=== PATIENT | male | born 1960 | race Caucasian/White ===

== ENCOUNTER 2021-03-26 13:04 | Inpatient (IN) | payer BC ==
[~2021-03-26] VITALS: Ht 177.8 cm; Wt 61.0 kg
--- NOTE | 2021-03-26 14:20 | EKG ---
[facility] [address] [place] [address] Test Date: 2021-03-26 Test Time: 14:11:05 Pat Name: KALIN MAHONEY Department: Room: Gender: M Security Business Analyst: : 1960 Requested By: ALONZO COSTA Order Number: [id number] Reading MD: Measurements Intervals Geary Rate: 78 P: 90 ND: 132 QRS: 89 QRSD: 90 T: 67 QT: 424 QTc: 487 Interpretive Statements SINUS RHYTHM PROLONGED QT NO SPECIFIC ECG ABNORMALITIES RI6.01 No previous ECG available for comparison
[2021-03-26 14:44] LABS: BASO % 1 % (0-3); EOS % 0 % (0-3); HEMATOCRIT 38.5 % (39.0-53.0); HEMOGLOBIN 13.3 g/dL (13.0-17.5); LYMPH # 0.9 x10^3/uL (1.0-4.8); LYMPH % 11 % (24-48); MEAN CORPUSCULAR HEMOGLOBIN 33 pg (25-35); MEAN CORPUSCULAR HGB CONC 35 g/dL (31-37); MEAN CORPUSCULAR VOLUME 94 fL (79-100); MONO # 0.3 x10^3/uL (0.0-1.1); MONO % 4 % (0-9); NEUT # 6.4 x10^3/uL (1.8-7.7); NEUT % 84 % (31-73); PLATELET COUNT 157 x10^3/uL (140-400); RED BLOOD COUNT 4.08 x10^6/uL (4.30-5.70); RED CELL DISTRIBUTION WIDTH 13.1 % (11.5-14.5); WHITE BLOOD COUNT 7.7 x10^3/uL (4.0-11.0)
--- NOTE | 2021-03-26 14:47 | RAD ---
XR CHEST 1V 03/26/2021 2:16 PM INDICATION: Weakness, confusion COMPARISON: None available TECHNIQUE: Portable frontal view of the chest is provided. FINDINGS: The cardiomediastinal silhouette is within normal limits. Lungs are clear. Pulmonary emphysema. There are no significant pleural effusions. There is no pulmonary vascular congestion. No pneumothora x. No suspicious osseous abnormality. IMPRESSION: There is no acute cardiopulmonary process. Pulmonary emphysema. Electronically signed by: Salima Duran MD (03/26/2021 2:44 PM) [id number]
--- NOTE | 2021-03-26 14:50 | RAD ---
EXAM: CT head without contrast INDICATION: Confusion COMPARISON: None TECHNIQUE: Axial CT imaging through the head without intravenous contrast. One or more of the following individualized dose reduction techniques were utilized for this examinat ion: 1. Automated exposure control 2. Adjustment of the mA and/or kV according to patient size 3. Use of iterative reconstruction technique. FINDINGS: The ventricles and sulci are moderately enlarged. There is mild periventricular white matter hypoatte nuation. Mcclellan-white matter differentiation is maintained. There is no intracranial hemorrhage, acute infarct, or mass lesion. Basal cisterns are clear. The skull and scalp are intact. Paranasal sinuses and mastoid air cells are clear. Globes and orbits are intact.. IMPRESSION: 1. No acute intracranial abnormality. 2. Moderate atrophy. Electronically signed by: Susan Castaneda MD (03/26/2021 2:48 PM) [id number]
[2021-03-26 14:56] LABS: PROTHROMBIN TIME PATIENT 15.6 SEC (11.7-14.0)
[2021-03-26 15:11] LABS: ALBUMIN 2.6 g/dL (3.4-5.0); ALBUMIN/GLOBULIN RATIO 0.6 (1.0-1.7); CALCIUM 8.4 mg/dL (8.5-10.1); CREATININE 1.7 mg/dL (0.7-1.3); DIRECT BILIRUBIN 0.7 mg/dL (0.0-0.2); GFR 41.2; MAGNESIUM 2.8 mg/dL (1.8-2.4); POTASSIUM 3.7 mmol/L (3.5-5.1); TOTAL BILIRUBIN 2.1 mg/dL (0.2-1.0); TOTAL PROTEIN 6.9 g/dL (6.4-8.2)
[2021-03-26] MEDS ORDERED: MULTIVIT INFUSN,ADULT 4,VIT K 10 ML, THIAMINE INJ 100 MG, FOLIC ACID INJ 1 MG in IV NOR... IV ONE (15:30)
--- NOTE | 2021-03-26 15:51 | PHYS DOC ---
Past Medical History Additional Past Medical Histor: RA,COMPRESSION FRACTURES Past Surgical History: Other Additional Past Surgical Histo: HERNIA Smoking Status: Never Smoker Alcohol Use: Heavy Additional Information: DAILY, DRINKS 10 TO 12 BEERS A DAY, LAST DRINK 2020 OR 2020 General Adult EDM: Chief Complaint: WEAKNESS/GENERALIZED HPI: HPI: Patient is a 61-year-old male presents to the emergency department via EMS chief complaint of "my family is making me come here ". Patient does complain of being a 10 or more beer per day drinker every day since he was 18 years old. Patient reports quitting drinking this past Sunday because he could no longer afford alcohol. Patient reports since quitting drinking last Sunday he has become weak, feeling cold, and having fainting spells. Patient denies hitting his head. Patient denies aches or pains. Patient reports he feels very thirsty. Patient denies increased urination. Patient denies chest pain, shortness of breath, chest congestion or nasal congestion. Patient states he has not seen a primary care physician since he was 18 years old. Patient reports having an appointment to see a primary care physician at [facility] this next Sunday. Patient's brother at bedside reports the patient has had recent confusion, has had recent falls when he would come to see him. Is wo rried that he may be failure to thrive. Patient's brother states he felt he could not wait until his doctor's appointment this coming Sunday and brought him to the emergency department today for evaluation. Patient denies allergies to medications, takes no rfsj-nfj-[id number] medications nor prescription medications. Patient denies cigarette smoking, denies drug use, states he only drinks beer. Review of Systems: Review of Systems: 14 body systems of review of systems have been reviewed. See HPI for pertinent positives and negative responses, otherwise all other systems are negative, nonpertinent or noncontributory. Constitutional: Negative except as outlined in HPI above. Skin: Negative except as outlined in HPI above. Eyes: Negative except as outlined in HPI above. HENT: Negative except as outlined in HPI above. Respiratory: Negative except as outlined in HPI above. Cardiovascular: Negative except as outlined in HPI above. GI: Negative except as outlined in HPI above. : Negative except as outlined in HPI above. Musculoskeletal: Negative except as outlined in HPI above. Integument: Negative except as outlined in HPI above. Neurologic: Negative except as outlined in HPI above. Endocrine: Negative except as outlined in HPI above. Lymphatic: Negative except as outlined in HPI above. Psychiatric: Negative except as outlined in HPI above. Heart Score: C/O Chest Pain: No Risk Factors: Risk Factors: DM, Current or recent (<one month) smoker, HTN, HLP, family history of CAD, obesity. Risk Scores: Score 0 - 3: 2.5% MACE over next 6 weeks - Discharge Home Score 4 - 6: 20.3% MACE over next 6 weeks - Admit for Clinical Observation Score 7 - 10: 72.7% MACE over next 6 weeks - Early Invasive Strategies Current Medications: Current Medications Medications (Trade) Dose Ordered Sig/Holger Start Time Stop Time Status Last Admin Dose Admin Multivitamins 10 ml/Thiamine HCl 100 mg/Folic Acid 1 mg/Sodium Chloride 1,011.2 ml @ 1,000.088 mls/hr 1X ONCE 03/26/21 15:30 03/26/21 16:30 Allergies: Allergies: Allergies Coded Allergies Type Severity Reaction Last Updated Verified No Known Drug Allergies 03/26/21 No Physical Exam: PE: Constitutional: Well developed, no acute distress, nontoxic in appearance. HENT: Normocephalic, atraumatic, bilateral external ears normal, oropharynx dry, no oral exudates, nose normal. Oral mucosa dry. Eyes: PERRLA, EOMI, conjunctiva normal, no discharge. Neck: Normal range of motion, no tenderness, supple, no stridor. Cardiovascular:Heart rate regular rhythm, no murmur. Lungs & Thorax: Bilateral breath sounds clear to auscultation, lung sounds clear to auscultate all lung grajeda. Abdomen: Bowel sounds normal, soft, no tenderness, no masses, no pulsatile masses. Skin: Warm, dry, no erythema, no rash. Cold to touch. Back: No tenderness, no CVA tenderness. Extremities: No tenderness, no cyanosis, no clubbing, ROM intact, no edema. Bruising to lower extremities. Neurologic: Alert and oriented X 3, normal motor function, normal sensory function, no focal deficits noted. Psychologic: Affect normal, judgement normal, mood normal. Current Patient Data: Labs: Laboratory Tests Test 03/26/21 14:30 White Blood Count 7.7 x10^3/uL (4.0-11.0) Red Blood Count 4.08 x10^6/uL (4.30-5.70) L Hemoglobin 13.3 g/dL (13.0-17.5) Hematocrit 38.5 % (39.0-53.0) L Mean Corpuscular Volume 94 fL (79-100) Mean Corpuscular Hemoglobin 33 pg (25-35) Mean Corpuscular Hemoglobin Concent 35 g/dL (31-37) Red Cell Distribution Width 13.1 % (11.5-14.5) Platelet Count 157 x10^3/uL (140-400) Neutrophils (%) (Auto) 84 % (31-73) H Lymphocytes (%) (Auto) 11 % (24-48) L Monocytes (%) (Auto) 4 % (0-9) Eosinophils (%) (Auto) 0 % (0-3) Basophils (%) (Auto) 1 % (0-3) Neutrophils # (Auto) 6.4 x10^3/uL (1.8-7.7) Lymphocytes # (Auto) 0.9 x10^3/uL (1.0-4.8) L Monocytes # (Auto) 0.3 x10^3/uL (0.0-1.1) Eosinophils # (Auto) 0.0 x10^3/uL (0.0-0.7) Basophils # (Auto) 0.0 x10^3/uL (0.0-0.2) Prothrombin Time 15.6 SEC (11.7-14.0) H Prothrombin Time INR 1.2 (0.8-1.1) H Activated Partial Thromboplast Time 33 SEC (24-38) Sodium Level 113 mmol/L (136-145) *L Potassium Level 3.7 mmol/L (3.5-5.1) Chloride Level 78 mmol/L (98-107) L Carbon Dioxide Level 14 mmol/L (21-32) L Anion Gap 21 (6-14) H Blood Urea Nitrogen 45 mg/dL (8-26) H Creatinine 1.7 mg/dL (0.7-1.3) H Estimated GFR (Cockcroft-Gault) 41.2 BUN/Creatinine Ratio 26 (6-20) H Glucose Level 131 mg/dL (70-99) H Calcium Level 8.4 mg/dL (8.5-10.1) L Phosphorus Level 6.0 mg/dL (2.6-4.7) H Magnesium Level 2.8 mg/dL (1.8-2.4) H Total Bilirubin 2.1 mg/dL (0.2-1.0) H Direct Bilirubin 0.7 mg/dL (0.0-0.2) H Aspartate Amino Transferase (AST) 24 U/L (15-37) Alanine Aminotransferase (ALT) 31 U/L (16-63) Alkaline Phosphatase 92 U/L (46-116) Creatine Kinase 140 U/L (39-308) Creatine Kinase MB (Mass) 2.5 ng/mL (0.0-3.6) Creatine Kinase MB Relative Index 1.8 % (0-4) Troponin I Quantitative < 0.017 ng/mL (0.000-0.055) SO-Qih-U-Type Natriuretic Peptide 1955 pg/mL (0-124) H Total Protein 6.9 g/dL (6.4-8.2) Albumin 2.6 g/dL (3.4-5.0) L Albumin/Globulin Ratio 0.6 (1.0-1.7) L Lipase 317 U/L (73-393) Ethyl Alcohol Level < 10 mg/dL (0-10) Laboratory Tests 03/26/21 14:30 Laboratory Tests 03/26/21 14:30 Vital Signs: Laboratory Tests Test 03/26/21 14:30 White Blood Count 7.7 x10^3/uL Red Blood Count 4.08 x10^6/uL Hemoglobin 13.3 g/dL Hematocrit 38.5 % Mean Corpuscular Volume 94 fL Mean Corpuscular Hemoglobin 33 pg Mean Corpuscular Hemoglobin Concent 35 g/dL Red Cell Distribution Width 13.1 % Platelet Count 157 x10^3/uL Neutrophils (%) (Auto) 84 % Lymphocytes (%) (Auto) 11 % Monocytes (%) (Auto) 4 % Eosinophils (%) (Auto) 0 % Basophils (%) (Auto) 1 % Neutrophils # (Auto) 6.4 x10^3/uL Lymphocytes # (Auto) 0.9 x10^3/uL Monocytes # (Auto) 0.3 x10^3/uL Eosinophils # (Auto) 0.0 x10^3/uL Basophils # (Auto) 0.0 x10^3/uL Prothrombin Time 15.6 SEC Prothromb Time International Ratio 1.2 Activated Partial Thromboplast Time 33 SEC Sodium Level 113 mmol/L Potassium Level 3.7 mmol/L Chloride Level 78 mmol/L Carbon Dioxide Level 14 mmol/L Anion Gap 21 Blood Urea Nitrogen 45 mg/dL Creatinine 1.7 mg/dL Estimated GFR (Cockcroft-Gault) 41.2 BUN/Creatinine Ratio 26 Glucose Level 131 mg/dL Calcium Level 8.4 mg/dL Phosphorus Level 6.0 mg/dL Magnesium Level 2.8 mg/dL Total Bilirubin 2.1 mg/dL Direct Bilirubin 0.7 mg/dL Aspartate Amino Transf (AST/SGOT) 24 U/L Alanine Aminotransferase (ALT/SGPT) 31 U/L Alkaline Phosphatase 92 U/L Creatine Kinase 140 U/L Creatine Kinase MB (Mass) 2.5 ng/mL Creatine Kinase MB Relative Index 1.8 % Troponin I Quantitative < 0.017 ng/mL SV-Izx-P-Type Natriuretic Peptide 1955 pg/mL Total Protein 6.9 g/dL Albumin 2.6 g/dL Albumin/Globulin Ratio 0.6 Lipase 317 U/L Ethyl Alcohol Level < 10 mg/dL Current Medications Medications (Trade) Dose Ordered Sig/Holger Route PRN Reason Start Time Stop Time Status Last Admin Dose Admin Multivitamins 10 ml/Thiamine HCl 100 mg/Folic Acid 1 mg/Sodium Chloride 1,011.2 ml @ 1,000.088 mls/hr 1X ONCE IV 03/26/21 15:30 03/26/21 16:30 03/26/21 15:31 Multivitamins 10 ml/Thiamine HCl 100 mg/Folic Acid 1 mg/Sodium Chloride 1,011.2 ml @ 100 mls/ hr DAILY IV 03/27/21 09:00 03/30/21 19:07 Multivitamins (Thera M Plus) 1 tab DAILY PO 03/31/21 09:00 Folic Acid (Folic Acid) 1 mg DAILY PO 03/31/21 09:00 Thiamine Mononitrate (Vitamin B-1) 100 mg DAILY PO 03/31/21 09:00 Lorazepam (Ativan) 4 mg PRN Q1HR PRN PO For CIWA 8-14 03/26/21 16:00 Lorazepam (Ativan) 8 mg PRN Q1HR PRN PO For CIWA 15 or greater 03/26/21 16:00 Albuterol/ Ipratropium (Duoneb) 3 ml QID NEB 03/26/21 17:00 UNV Vital Signs Date Time Temp Pulse Resp B/P (MAP) Pulse Ox O2 Delivery O2 Flow Rate FiO2 03/26/21 13:22 93.3 80 20 141/77 (98) 100 Room Air 93.3 EKG: EKG: EKG performed at 1411 by ED nursing staff shows a normal sinus rhythm with prolonged QT interval, heart rate 70 bpm, ID interval 0.132, QTc interval 0.487, no acute STEMI, no ACS, no acute ischemia appreciated, EKG interpreted by ED attending physician Dr. Duke. Radiology/Procedures: Radiology/Procedures: PATIENT: KALIN MAHONEY ACCOUNT: [id number] : 1960 LOCATION: ER AGE: 61 SEX: M EXAM STATUS: PRE ER ORD. PHYSICIAN: ALONZO COSTA APRN REASON: Weakness, confusion PROCEDURE: CHEST AP ONLY XR CHEST 1V 03/26/2021 2:16 PM INDICATION: Weakness, confusion COMPARISON: None available TECHNIQUE: Portable frontal view of the chest is provided. FINDINGS: The cardiomediastinal silhouette is within normal limits. Lungs are clear. Pulmonary emphysema. There are no significant pleural effusions. There is no pulmonary vascular congestion. No pneumothorax. No suspicious osseous abnormality. IMPRESSION: There is no acute cardiopulmonary process. Pulmonary emphysema. PROCEDURE: CT HEAD WO CONTRAST EXAM: CT head without contrast INDICATION: Confusion COMPARISON: None TECHNIQUE: Axial CT imaging through the head without intravenous contrast. One or more of the following individualized dose reduction techniques were utilized for this examination: 1. Automated exposure control 2. Adjustment of the mA and/or kV according to patient size 3. Use of iterative reconstruction technique. FINDINGS: The ventricles and sulci are moderately enlarged. There is mild periventricular white matter hypoattenuation. Mcclellan-white matter differentiation is maintained. There is no intracranial hemorrhage, acute infarct, or mass lesion. Basal cisterns are clear. The skull and scalp are intact. Paranasal sinuses and mastoid air cells are clear. Globes and orbits are intact.. IMPRESSION: 1. No acute intracranial abnormality. 2. Moderate atrophy. Electronically signed by: Susan Castaneda MD (03/26/2021 2:48 PM) [id number] Course & Med Decision Making: Course & Med Decision Making Pertinent Labs and Imaging studies reviewed. (See chart for details) 61-year-old male, vital signs reviewed, presents emergency department concerning weakness and confusion after stopping drinking alcohol this past Sunday. Patient's physical examination concerning for failure to thrive, will order cardiopulmonary work-up, EtOH withdrawal work-up. Patient does have a reported 43-year every day drinking beer history of 10+ beers. Patient made an abrupt stop this past Sunday. Patient reports not seeing a physician for primary care over the past 43 years. Patient does present with hypothermia, rectal temp 93.3. Bear hugger ordered for hypothermia. Patient's labs concerning for severe hyponatremia, acute kidney injury, discussed with patient and patient's family members at bedside labs, concerns, recommended admission to the intensive care unit for hyponatremia, acute kidney injury, alcoholism, alcohol withdrawal syndrome, hyperthermia. Patient and patient's family members gave verbal understanding of and are amenable to adm ission recommendation. Repeat axillary temp of 95.6, continue Lesia hugger treatment. Critical labs were called by labor expediter at 1515, banana bag ordered Called and discussed patient case and ED work-up with inpatient management physician Dr. Iriwn who agrees patient's ED presentation warrants admission to the intensive care unit, Dr. Irwin states he will examine patient in ED and manage fluid resuscitation related to hyponatremia. Dr. Irwin requested consult to nephrology specialty. Called and discussed patient case and ED work-up with nephrology specialist Dr. Marquis who agrees patient warrants admission to the ICU, states he will call ICU for orders and ongoing patient management. Patient awaiting ICU bed from data warehouse architect at this time. Mavis Disclaimer: Mavis Disclaimer: This electronic medical record was generated, in whole or in part, using a voice recognition dictation system. Departure Departure Impression: Primary Impression: Hyponatremia Additional Impressions: MAHESH (acute kidney injury) Alcoholism Alcohol withdrawal syndrome Qualified Codes: F10.239 - Alcohol dependence with withdrawal, unspecified Hypothermia Qualified Codes: T68.XXXA - Hypothermia, initial encounter Disposition: 09 ADMITTED INPATIENT Admitting Physician: CISCO (Admit to Dr. Irwin to ICU, Dr. Marquis nephrology consulted.) Condition: GUARDED Referrals: NO PCP (PCP) ALONZO COSTA APRN Mar 26, 2021 15:51
[2021-03-26] MEDS ORDERED: ELECTROLYTE (NON-ICU) PROTOCOL. MC PRN (16:15)
[2021-03-26] MEDS ORDERED: ONDANSETRON PF 4 MG/2 ML VIAL. IVP PRN (16:15)
[2021-03-26] MEDS ORDERED: oxyCODONE/APAP 5/325 1 TAB TABLET PO PRN ×2 (16:15)
[2021-03-26] MEDS ORDERED: CALCIUM CARBONATE 500 MG TAB.CHEW PO PRN (16:15)
[2021-03-26] MEDS ORDERED: ZOLPIDEM 5 MG TABLET. PO PRN (16:15)
[2021-03-26] MEDS ORDERED: ACETAMINOPHEN 325 MG TABLET. PO PRN (16:15)
--- NOTE | 2021-03-26 16:40 | PDOC1 ---
History and Physical Date of Service: DOS: DATE: 03/26/21 TIME: 16:34 Chief Complaint: Problems: (1) Hyponatremia (2) MAHESH (acute kidney injury) (3) Hypothermia (4) Alcoholism Chief Complain: I was brought here by my family for weakness History of Present Illness: HPI: Patient very poor historian, not really give a reliable history thus below was from emergency department Patient is a 61-year-old male presents to the emergency department via EMS chief complaint of "my family is making me come here ". Patient does complain of being a 10 or more beer per day drinker every day since he was 18 years old. Patient reports quitting drinking this past Sunday because he could no longer afford alcohol. Patient reports since quitting drinking last Sunday he has become weak, feeling cold, and having fainting spells. Patient denies hitting his head. Patient denies aches or pains. Patient reports he feels very thirsty. Patient denies increased urination. Patient denies chest pain, shortness of breath, chest congestion or nasal congestion. Patient states he has not seen a primary care physician since he was 18 years old. Patient reports having an appointment to see a primary care physician at [facility] this next Sunday. Patient's brother at bedside reports the patient has had recent confusion, has had recent falls when he would come to see him. Is worried that he may be failure to thrive. Patient's brother states he felt he could not wait until his doctor's appointment this coming Sunday and brought him to the emergency department today for evaluation. Patient denies allergies to medications, takes no [id number] medications nor prescription medications. Patient denies cigarette smoking, denies drug use, states he only drinks beer. Past Medical/Surgical History: PMH/PSH: Rheumatoid arthritis Allergies: Allergies: Coded Allergies: No Known Drug Allergies (Unverified , 03/26/21) Family History: Family History: Noncontributory Social History: Social History: Daily alcohol user 10-15 beers a day for several years. No drugs or smoking tobacco Current Medications: Current Medications Current Medications Multivitamins 10 ml/Thiamine HCl 100 mg/Folic Acid 1 mg/Sodium Chloride 1,011.2 ml @ 1,000.088 mls/hr 1X ONCE IV Last administered on 03/26/21at 15:31; Start 9/25/21 at 15:30; Stop 03/26/21 at 16:30; Status DC Multivitamins 10 ml/Thiamine HCl 100 mg/Folic Acid 1 mg/Sodium Chloride 1,011.2 ml @ 100 mls/ hr DAILY IV ; Start 03/27/21 at 09:00; Stop 03/30/21 at 19:07 Multivitamins (Thera M Plus) 1 tab DAILY PO ; Start 03/31/21 at 09:00 Folic Acid (Folic Acid) 1 mg DAILY PO ; Start 03/31/21 at 09:00 Thiamine Mononitrate (Vitamin B-1) 100 mg DAILY PO ; Start 03/31/21 at 09:00 Lorazepam (Ativan) 4 mg PRN Q1HR PRN PO For CIWA 8-14; Start 03/26/21 at 16:00 Lorazepam (Ativan) 8 mg PRN Q1HR PRN PO For CIWA 15 or greater; Start 03/26/21 at 16:00 Albuterol/ Ipratropium (Duoneb) 3 ml QID NEB ; Start 03/26/21 at 17:00 Ondansetron HCl (Zofran) 4 mg PRN Q6HRS PRN IVP NAUSEA/VOMITING; Start 03/26/21 at 16:15 Calcium Carbonate/ Glycine (Tums) 500 mg PRN Q3HRS PRN PO UPSET STOMACH; Start 03/26/21 at 16:15 Zolpidem Tartrate (Ambien) 5 mg PRN QHS PRN PO INSOMNIA, MAY REPEAT IN 1HR; Start 03/26/21 at 16:15 Info (Non-Icu Electrolyte Protocol) 1 ea PRN DAILY PRN MC SEE COMMENTS; Start 03/26/21 at 16:15 Oxycodone/ Acetaminophen (Percocet 5/325) 1 tab PRN Q4HRS PRN PO MILD PAIN, 1ST CHOICE; Start 03/26/21 at 16:15 Oxycodone/ Acetaminophen (Percocet 5/325) 2 tab PRN Q4HRS PRN PO MODERATE PAIN, SEVERE PAIN; Start 03/26/21 at 16:15 Acetaminophen (Tylenol) 650 mg PRN Q6HRS PRN PO Headaches, Temp > 101.5F; Start 03/26/21 at 16:15 Senna/Docusate Sodium (Senna Plus) 1 tab BID PO ; Start 03/26/21 at 21:00 Heparin Sodium (Porcine) (Heparin Sodium) 5,000 unit Q8HRS SQ ; Start 03/26/21 at 22:00 ROS: Review of Systems Review of System Negative unless noted in HPI Physical Exam: Vital Signs: Vital Signs Date Time Temp Pulse Resp B/P (MAP) Pulse Ox O2 Delivery O2 Flow Rate FiO2 03/26/21 16:15 95.7 95.7 03/26/21 15:04 84 116/65 (82) 100 Room Air 03/26/21 13:22 20 Physcial Exam: GEN: Alert and oriented but slow to answer HEENT: Normal cephalic, atraumatic, external auditory canals are patent EYES: Extraocular muscles are intact, pupil are equally round and reactive to light and accommodation MUSCULOSKELETAL: Well developed , well nourished, good range of motion ENDOCRINE: No thyromegaly was palpated LYMPHATICS: No cervical chain or axillary nodes were noted HEMATOPOIETIC: No bruising NECK: Supple, no JVD, no thyromegaly was noted LUNGS: Clear to auscultation in all lung grajeda without rhonchi or wheezing HEART: RRR, S1, S2 present. Peripheral pulses intact, no obvious murmurs noted ABDOMEN: Soft, nontender. Positive bowel sounds, no organomegaly, normal bowel sounds EXTREMITIES: Without clubbing, cyanosis, or edema. Pedal pulses intact. Negative Homans sign NEUROLOGIC: Normal speech and tone. A&O x 3, moves all extremities, no obvious focal deficits PSYCHIATRIC: Normal affect, normal mood. Stable SKIN: No ulcerations or rashes, good skin turgor, no jaundice VASCULAR: Good capillary refill, neurovascular bundle appears to be intact Labs: Labs: Laboratory Tests Test 03/26/21 14:30 White Blood Count 7.7 x10^3/uL (4.0-11.0) Red Blood Count 4.08 x10^6/uL (4.30-5.70) Hemoglobin 13.3 g/dL (13.0-17.5) Hematocrit 38.5 % (39.0-53.0) Mean Corpuscular Volume 94 fL (79-100) Mean Corpuscular Hemoglobin 33 pg (25-35) Mean Corpuscular Hemoglobin Concent 35 g/dL (31-37) Red Cell Distribution Width 13.1 % (11.5-14.5) Platelet Count 157 x10^3/uL (140-400) Neutrophils (%) (Auto) 84 % (31-73) Lymphocytes (%) (Auto) 11 % (24-48) Monocytes (%) (Auto) 4 % (0-9) Eosinophils (%) (Auto) 0 % (0-3) Basophils (%) (Auto) 1 % (0-3) Neutrophils # (Auto) 6.4 x10^3/uL (1.8-7.7) Lymphocytes # (Auto) 0.9 x10^3/uL (1.0-4.8) Monocytes # (Auto) 0.3 x10^3/uL (0.0-1.1) Eosinophils # (Auto) 0.0 x10^3/uL (0.0-0.7) Basophils # (Auto) 0.0 x10^3/uL (0.0-0.2) Prothrombin Time 15.6 SEC (11.7-14.0) Prothromb Time International Ratio 1.2 (0.8-1.1) Activated Partial Thromboplast Time 33 SEC (24-38) Sodium Level 113 mmol/L (136-145) Potassium Level 3.7 mmol/L (3.5-5.1) Chloride Level 78 mmol/L (98-107) Carbon Dioxide Level 14 mmol/L (21-32) Anion Gap 21 (6-14) Blood Urea Nitrogen 45 mg/dL (8-26) Creatinine 1.7 mg/dL (0.7-1.3) Estimated GFR (Cockcroft-Gault) 41.2 BUN/Creatinine Ratio 26 (6-20) Glucose Level 131 mg/dL (70-99) Calcium Level 8.4 mg/dL (8.5-10.1) Phosphorus Level 6.0 mg/dL (2.6-4.7) Magnesium Level 2.8 mg/dL (1.8-2.4) Total Bilirubin 2.1 mg/dL (0.2-1.0) Direct Bilirubin 0.7 mg/dL (0.0-0.2) Aspartate Amino Transf (AST/SGOT) 24 U/L (15-37) Alanine Aminotransferase (ALT/SGPT) 31 U/L (16-63) Alkaline Phosphatase 92 U/L (46-116) Creatine Kinase 140 U/L (39-308) Creatine Kinase MB (Mass) 2.5 ng/mL (0.0-3.6) Creatine Kinase MB Relative Index 1.8 % (0-4) Troponin I Quantitative < 0.017 ng/mL (0.000-0.055) TB-Svj-Q-Type Natriuretic Peptide 1955 pg/mL (0-124) Total Protein 6.9 g/dL (6.4-8.2) Albumin 2.6 g/dL (3.4-5.0) Albumin/Globulin Ratio 0.6 (1.0-1.7) Lipase 317 U/L (73-393) Ethyl Alcohol Level < 10 mg/dL (0-10) Laboratory Tests Test 03/26/21 14:30 White Blood Count 7.7 x10^3/uL (4.0-11.0) Red Blood Count 4.08 x10^6/uL (4.30-5.70) Hemoglobin 13.3 g/dL (13.0-17.5) Hematocrit 38.5 % (39.0-53.0) Mean Corpuscular Volume 94 fL (79-100) Mean Corpuscular Hemoglobin 33 pg (25-35) Mean Corpuscular Hemoglobin Concent 35 g/dL (31-37) Red Cell Distribution Width 13.1 % (11.5-14.5) Platelet Count 157 x10^3/uL (140-400) Neutrophils (%) (Auto) 84 % (31-73) Lymphocytes (%) (Auto) 11 % (24-48) Monocytes (%) (Auto) 4 % (0-9) Eosinophils (%) (Auto) 0 % (0-3) Basophils (%) (Auto) 1 % (0-3) Neutrophils # (Auto) 6.4 x10^3/uL (1.8-7.7) Lymphocytes # (Auto) 0.9 x10^3/uL (1.0-4.8) Monocytes # (Auto) 0.3 x10^3/uL (0.0-1.1) Eosinophils # (Auto) 0.0 x10^3/uL (0.0-0.7) Basophils # (Auto) 0.0 x10^3/uL (0.0-0.2) Prothrombin Time 15.6 SEC (11.7-14.0) Prothromb Time International Ratio 1.2 (0.8-1.1) Activated Partial Thromboplast Time 33 SEC (24-38) Sodium Level 113 mmol/L (136-145) Potassium Level 3.7 mmol/L (3.5-5.1) Chloride Level 78 mmol/L (98-107) Carbon Dioxide Level 14 mmol/L (21-32) Anion Gap 21 (6-14) Blood Urea Nitrogen 45 mg/dL (8-26) Creatinine 1.7 mg/dL (0.7-1.3) Estimated GFR (Cockcroft-Gault) 41.2 BUN/Creatinine Ratio 26 (6-20) Glucose Level 131 mg/dL (70-99) Calcium Level 8.4 mg/dL (8.5-10.1) Phosphorus Level 6.0 mg/dL (2.6-4.7) Magnesium Level 2.8 mg/dL (1.8-2.4) Total Bilirubin 2.1 mg/dL (0.2-1.0) Direct Bilirubin 0.7 mg/dL (0.0-0.2) Aspartate Amino Transf (AST/SGOT) 24 U/L (15-37) Alanine Aminotransferase (ALT/SGPT) 31 U/L (16-63) Alkaline Phosphatase 92 U/L (46-116) Creatine Kinase 140 U/L (39-308) Creatine Kinase MB (Mass) 2.5 ng/mL (0.0-3.6) Creatine Kinase MB Relative Index 1.8 % (0-4) Troponin I Quantitative < 0.017 ng/mL (0.000-0.055) DA-Vrb-L-Type Natriuretic Peptide 1955 pg/mL (0-124) Total Protein 6.9 g/dL (6.4-8.2) Albumin 2.6 g/dL (3.4-5.0) Albumin/Globulin Ratio 0.6 (1.0-1.7) Lipase 317 U/L (73-393) Ethyl Alcohol Level < 10 mg/dL (0-10) Assessment/Plan Assessment/Plan Hyponatremia, MAHESH, hypothermia, alcohol abuse with suspected withdrawal -Admit to ICU for sodium of 113 patient's mentation borderline -Elevated creatinine and many electrolyte abnormalities, nephrology consulted -CIWA protocol ordered for alcohol withdrawal -PAT team consulted -Multivitamin -Serum osmolality ordered for hyponatremia -Trend creatinine -DVT prophylaxis -Renal diet Justifications for Admission Other Justification ANTONIA HECK MD Mar 26, 2021 16:40
[2021-03-26] MEDS: IPRATRPIUM/ALBUTEROL 0.5/2.5MG 3 ML NEBU. NEB SCH ×2 (17:02→20:24)
[2021-03-26 17:30] VITALS: BP 81/51
[2021-03-26 19:00] VITALS: BP 86/38
[2021-03-26 20:00] VITALS: BP 93/41
[2021-03-26] MEDS ORDERED: IV NORMAL SALINE 1000ML BAG 1,000 ML IV SCH (20:15)
[2021-03-26] MEDS: SENNOSIDES/DOCUSATE 8.6/50MG TABLET. PO SCH (20:52)
[2021-03-26 21:00] VITALS: BP 85/45
[2021-03-26 22:00] VITALS: BP 92/51
[2021-03-26] MEDS: HEPARIN for SUB-Q USE 5,000 UNIT/ML VIAL. SQ SCH (22:24)
[2021-03-26 23:00] VITALS: BP 85/51
[2021-03-26] MEDS: SODIUM BICARBONATE VIAL 150 MEQ in IV STERILE WATER 1,000 ML IV SCH (23:08)
[2021-03-27] VITALS (14 sets, daily range): BP systolic 79–110; BP diastolic 42–63
[2021-03-27 00:09] LABS: FREE T4 1.04 ng/dL (0.76-1.46); THYROID STIM HORMONE (TSH) 2.16 uIU/mL (0.358-3.74)
[2021-03-27] MEDS ORDERED: ALBUTEROL SULFATE 2.5 MG/3 ML NEBU. NEB PRN (01:45)
[2021-03-27 05:50] LABS: POTASSIUM 3.3 mmol/L (3.5-5.1)
[2021-03-27] MEDS: HEPARIN for SUB-Q USE 5,000 UNIT/ML VIAL. SQ SCH ×3 (05:54→21:53)
[2021-03-27] MEDS: SODIUM BICARBONATE VIAL 150 MEQ in IV STERILE WATER 1,000 ML IV SCH (07:48)
--- NOTE | 2021-03-27 08:53 | PDOC2 ---
CONSULT Date of Consult Date of Consult DATE: 03/27/21 TIME: 08:40 Reason for Consult Reason for Consult: Hyponatremia: Sodium 113 Referring Physician Referring Physician: Dc Identification/Chief Complaint Chief Complaint Weakness Source Source: Chart review, Patient History of Present Illness Reason for Visit: Patient is a 61-year-old gentleman was a very poor historian is unable to provide me with much in terms of details of what has been going on. Most of his history is reviewed from HPI by Dr. Irwin. He could not tell me why he came to the hospital but does admit that he was weak, fatigued and dizzy. He could not tell me how well he was eating or drinking or if he had lost any weight in the recent past. Per documentation from the ER as well as by the admitting team it appears that patient used to drink 10 or more beers per day every day since he was the age of 18 but quit drinking approximately 5 to 7 days ago. Thereafter he became increasingly weak and had some " fainting spells". He cannot tell me if he was orthostatic while standing up. He cannot tell me how much he has been urinating. Reportedly his brother had noticed increasing confusion and had brought up possibility of failure to thrive. At presentation to the ER he was noted to have a sodium of 130 and a bicarb of 14 anion gap of 21 BUN 45 creatinine of 1.7 phosphorus is 6 and albumin of 2.6. We were called for his low sodium. In my discussion with the ER provider it was noted that his head CT was negative for intracranial bleed or obvious lesions other than " moderate atrophy". Chest x- ray was also reportedly negative for obvious pathology other than possible emphysema in this non-smoker Past Medical History Past Medical History No past medical history other than alcoholism since patient has not seen a primary provider since the age of 18 Family History Family History Noncontributory to current issues Social History No ALCOHOL: heavy Drugs: None Lives: Alone Current Problem List Problem List Problems Medical Problems: (1) MAHESH (acute kidney injury) Status: Acute (2) Alcohol withdrawal syndrome Status: Acute (3) Alcoholism Status: Acute (4) Hypothermia Status: Acute Current Medications Current Medications Current Medications Multivitamins 10 ml/Thiamine HCl 100 mg/Folic Acid 1 mg/Sodium Chloride 1,011.2 ml @ 1,000.088 mls/hr 1X ONCE IV Last administered on 03/26/21at 15:31; Start 03/26/21 at 15:30; Stop 03/26/21 at 16:30; Status DC Multivitamins 10 ml/Thiamine HCl 100 mg/Folic Acid 1 mg/Sodium Chloride 1,011.2 ml @ 100 mls/ hr DAILY IV ; Start 03/27/21 at 09:00; Stop 03/26/21 at 22:37; Status DC Multivitamins (Thera M Plus) 1 tab DAILY PO ; Start 03/27/21 at 09:00 Folic Acid (Folic Acid) 1 mg DAILY PO ; Start 03/27/21 at 09:00 Thiamine Mononitrate (Vitamin B-1) 100 mg DAILY PO ; Start 03/27/21 at 09:00 Lorazepam (Ativan) 4 mg PRN Q1HR PRN PO For CIWA 8-14; Start 03/26/21 at 16:00 Lorazepam (Ativan) 8 mg PRN Q1HR PRN PO For CIWA 15 or greater; Start 03/26/21 at 16:00 Albuterol/ Ipratropium (Duoneb) 3 ml QID NEB ; Start 03/26/21 at 17:00; Stop 03/27/21 at 01:39; Status DC Ondansetron HCl (Zofran) 4 mg PRN Q6HRS PRN IVP NAUSEA/VOMITING; Start 03/26/21 at 16:15 Calcium Carbonate/ Glycine (Tums) 500 mg PRN Q3HRS PRN PO UPSET STOMACH; Start 03/26/21 at 16:15 Zolpidem Tartrate (Ambien) 5 mg PRN QHS PRN PO INSOMNIA, MAY REPEAT IN 1HR; Start 03/26/21 at 16:15 Info (Non-Icu Electrolyte Protocol) 1 ea PRN DAILY PRN MC SEE COMMENTS; Start 03/26/21 at 16:15 Oxycodone/ Acetaminophen (Percocet 5/325) 1 tab PRN Q4HRS PRN PO MILD PAIN, 1ST CHOICE; Start 03/26/21 at 16:15 Oxycodone/ Acetaminophen (Percocet 5/325) 2 tab PRN Q4HRS PRN PO MODERATE PAIN, SEVERE PAIN; Start 03/26/21 at 16:15 Acetaminophen (Tylenol) 650 mg PRN Q6HRS PRN PO Headaches, Temp > 101.5F; Sta rt 03/26/21 at 16:15 Senna/Docusate Sodium (Senna Plus) 1 tab BID PO Last administered on 03/26/21at 20:52; Start 03/26/21 at 21:00 Heparin Sodium (Porcine) (Heparin Sodium) 5,000 unit Q8HRS SQ Last administered on 03/27/21at 05:54; Start 03/26/21 at 22:00 Sodium Chloride 1,000 ml @ 75 mls/hr [id number] IV Last administered on 03/26/21at 20:48; Start 03/26/21 at 20:15; Stop 03/26/21 at 22:37; Status DC Sodium Bicarbonate 150 meq/Sterile Water 1,150 ml @ 125 mls/hr Q9H12M IV Last administered on 03/27/21at 07:48; Start 03/26/21 at 23:00 Albuterol Sulfate (Ventolin Neb Soln) 2.5 mg PRN QID PRN NEB SHORTNESS OF BREATH; Start 03/27/21 at 01:45 Allergies Allergies: Coded Allergies: No Known Drug Allergies (Unverified , 03/26/21) ROS Review of System Unable to reliably obtain from the patient due to patient being a poor historian Physical Exam Physical Exam General Appearance: Awake Alert Oriented x 1 -2 In no Distress Eyes: VIsion Unchanged Conjunctiva Normal EN: No EN Drainage Mucous Memb. drysih Neck: no JVD no JVP Supple no Thyromegaly CVS: S1 S2 no Murmur No Gallop No Rub no Edema Resp: no Rales no Rhonchi no Acc. Muscle use GI: BAS +ve NO Bruit Non Tender Non Distended : no CVA tenderness; no Suprapubic Tenderness SKIN: no Rashes Breast Exam deferred Mu.Sk: Adequate ROM mni Muscle Atrophy Heme: Unable to palpate Obvious LAD no Splenomegaly NEURO: Good Strength and Tone no asterixis, tremors or shakes Psych: ? Depressed no Active hallucination Vital Signs Vital Signs Date Time Temp Pulse Resp B/P (MAP) Pulse Ox O2 Delivery O2 Flow Rate FiO2 03/27/21 08:00 98.4 65 17 102/60 (74) 100 Room Air 98.4 Assessment & Plan Hyponatremia: Patient reportedly was asymptomatic at presentation. Serum osmolality was ordered but is not reported yet. Serum alcohol levels were undetectable. Patient has been given isotonic fluids and sodium has corrected to 120 and so fluids have been changed to hypotonic fluids to maintain rate of correction. Etiology of hyponatremia appears to be poor p.o. intake and intr avascular volume depletion. Patient was noted to be hypotensive also at times Element of acute kidney injury: Presumably associated intravascular volume depletion and hypotension. CK is normal despite falls Hypotension: Suspect due to intravascular volume depletion may be contributing to falls also. Intravascular volume depletion: Gentle volume repletion with isotonic/half NS as needed to maintain rate of correction of sodium Wide anion gap metabolic acidosis at presentation: Suspect due to starvation ketosis. Unable to order serum ketones at this facility, no urine (despite order) available to assess urinary ketones. Acidosis appears to have improved with isotonic bicarb drip Hyperphosphatemia: Reevaluate with daily trend. At risk for refeeding Low potassium: Replace as ordered Labs Labs Laboratory Tests Test 03/26/21 14:30 03/26/21 22:30 03/27/21 04:50 White Blood Count 7.7 x10^3/uL (4.0-11.0) Red Blood Count 4.08 x10^6/uL (4.30-5.70) Hemoglobin 13.3 g/dL (13.0-17.5) Hematocrit 38.5 % (39.0-53.0) Mean Corpuscular Volume 94 fL (79-100) Mean Corpuscular Hemoglobin 33 pg (25-35) Mean Corpuscular Hemoglobin Concent 35 g/dL (31-37) Red Cell Distribution Width 13.1 % (11.5-14.5) Platelet Count 157 x10^3/uL (140-400) Neutrophils (%) (Auto) 84 % (31-73) Lymphocytes (%) (Auto) 11 % (24-48) Monocytes (%) (Auto) 4 % (0-9) Eosinophils (%) (Auto) 0 % (0-3) Basophils (%) (Auto) 1 % (0-3) Neutrophils # (Auto) 6.4 x10^3/uL (1.8-7.7) Lymphocytes # (Auto) 0.9 x10^3/uL (1.0-4.8) Monocytes # (Auto) 0.3 x10^3/uL (0.0-1.1) Eosinophils # (Auto) 0.0 x10^3/uL (0.0-0.7) Basophils # (Auto) 0.0 x10^3/uL (0.0-0.2) Prothrombin Time 15.6 SEC (11.7-14.0) Prothromb Time International Ratio 1.2 (0.8-1.1) Activated Partial Thromboplast Time 33 SEC (24-38) Sodium Level 113 mmol/L (136-145) 115 mmol/L (136-145) 120 mmol/L (136-145) Potassium Level 3.7 mmol/L (3.5-5.1) 3.3 mmol/L (3.5-5.1) Chloride Level 78 mmol/L (98-107) 85 mmol/L (98-107) Carbon Dioxide Level 14 mmol/L (21-32) 24 mmol/L (21-32) Anion Gap 21 (6-14) 11 (6-14) Blood Urea Nitrogen 45 mg/dL (8-26) Creatinine 1.7 mg/dL (0.7-1.3) Estimated GFR (Cockcroft-Gault) 41.2 BUN/Creatinine Ratio 26 (6-20) Glucose Level 131 mg/dL (70-99) Calcium Level 8.4 mg/dL (8.5-10.1) Phosphorus Level 6.0 mg/dL (2.6-4.7) Magnesium Level 2.8 mg/dL (1.8-2.4) Total Bilirubin 2.1 mg/dL (0.2-1.0) Direct Bilirubin 0.7 mg/dL (0.0-0.2) Aspartate Amino Transf (AST/SGOT) 24 U/L (15-37) Alanine Aminotransferase (ALT/SGPT) 31 U/L (16-63) Alkaline Phosphatase 92 U/L (46-116) Creatine Kinase 140 U/L (39-308) Creatine Kinase MB (Mass) 2.5 ng/mL (0.0-3.6) Creatine Kinase MB Relative Index 1.8 % (0-4) Troponin I Quantitative < 0.017 ng/mL (0.000-0.055) WZ-Xki-C-Type Natriuretic Peptide 1955 pg/mL (0-124) Total Protein 6.9 g/dL (6.4-8.2) Albumin 2.6 g/dL (3.4-5.0) Albumin/Globulin Ratio 0.6 (1.0-1.7) Lipase 317 U/L (73-393) Ethyl Alcohol Level < 10 mg/dL (0-10) Uric Acid 10.8 mg/dL (3.5-7.2) Thyroid Stimulating Hormone (TSH) 2.160 uIU/mL (0.358-3.74) Free Thyroxine 1.04 ng/dL (0.76-1.46) Lactic Acid Level 1.3 mmol/L (0.4-2.0) Laboratory Tests Test 03/26/21 14:30 03/26/21 22:30 03/27/21 04:50 White Blood Count 7.7 x10^3/uL (4.0-11.0) Red Blood Count 4.08 x10^6/uL (4.30-5.70) Hemoglobin 13.3 g/dL (13.0-17.5) Hematocrit 38.5 % (39.0-53.0) Mean Corpuscular Volume 94 fL (79-100) Mean Corpuscular Hemoglobin 33 pg (25-35) Mean Corpuscular Hemoglobin Concent 35 g/dL (31-37) Red Cell Distribution Width 13.1 % (11.5-14.5) Platelet Count 157 x10^3/uL (140-400) Neutrophils (%) (Auto) 84 % (31-73) Lymphocytes (%) (Auto) 11 % (24-48) Monocytes (%) (Auto) 4 % (0-9) Eosinophils (%) (Auto) 0 % (0-3) Basophils (%) (Auto) 1 % (0-3) Neutrophils # (Auto) 6.4 x10^3/uL (1.8-7.7) Lymphocytes # (Auto) 0.9 x10^3/uL (1.0-4.8) Monocytes # (Auto) 0.3 x10^3/uL (0.0-1.1) Eosinophils # (Auto) 0.0 x10^3/uL (0.0-0.7) Basophils # (Auto) 0.0 x10^3/uL (0.0-0.2) Prothrombin Time 15.6 SEC (11.7-14.0) Prothromb Time International Ratio 1.2 (0.8-1.1) Activated Partial Thromboplast Time 33 SEC (24-38) Sodium Level 113 mmol/L (136-145) 115 mmol/L (136-145) 120 mmol/L (136-145) Potassium Level 3.7 mmol/L (3.5-5.1) 3.3 mmol/L (3.5-5.1) Chloride Level 78 mmol/L (98-107) 85 mmol/L (98-107) Carbon Dioxide Level 14 mmol/L (21-32) 24 mmol/L (21-32) Anion Gap 21 (6-14) 11 (6-14) Blood Urea Nitrogen 45 mg/dL (8-26) Creatinine 1.7 mg/dL (0.7-1.3) Estimated GFR (Cockcroft-Gault) 41.2 BUN/Creatinine Ratio 26 (6-20) Glucose Level 131 mg/dL (70-99) Calcium Level 8.4 mg/dL (8.5-10.1) Phosphorus Level 6.0 mg/dL (2.6-4.7) Magnesium Level 2.8 mg/dL (1.8-2.4) Total Bilirubin 2.1 mg/dL (0.2-1.0) Direct Bilirubin 0.7 mg/dL (0.0-0.2) Aspartate Amino Transf (AST/SGOT) 24 U/L (15-37) Alanine Aminotransferase (ALT/SGPT) 31 U/L (16-63) Alkaline Phosphatase 92 U/L (46-116) Creatine Kinase 140 U/L (39-308) Creatine Kinase MB (Mass) 2.5 ng/mL (0.0-3.6) Creatine Kinase MB Relative Index 1.8 % (0-4) Troponin I Quantitative < 0.017 ng/mL (0.000-0.055) XG-Ssy-E-Type Natriuretic Peptide 1955 pg/mL (0-124) Total Protein 6.9 g/dL (6.4-8.2) Albumin 2.6 g/dL (3.4-5.0) Albumin/Globulin Ratio 0.6 (1.0-1.7) Lipase 317 U/L (73-393) Ethyl Alcohol Level < 10 mg/dL (0-10) Uric Acid 10.8 mg/dL (3.5-7.2) Thyroid Stimulating Hormone (TSH) 2.160 uIU/mL (0.358-3.74) Free Thyroxine 1.04 ng/dL (0.76-1.46) Lactic Acid Level 1.3 mmol/L (0.4-2.0) Review All relevant outside records, renal labs, imaging studies, telemetry/EKG's were reviewed. Images Images Chest x-ray FINDINGS: The cardiomediastinal silhouette is within normal limits. Lungs are clear. Pulmonary emphysema. There are no significant pleural effusions. There is no pulmonary vascular congestion. No pneumothorax. No suspicious osseous abnormality. IMPRESSION: There is no acute cardiopulmonary process. Pulmonary emphysema. Head CT FINDINGS: The ventricles and sulci are moderately enlarged. There is mild periventricular white matter hypoattenuation. Mcclellan-white matter differentiation is maintained. There is no intracranial hemorrhage, acute infarct, or mass lesion. Basal cisterns are clear. The skull and scalp are intact. Paranasal sinuses and mastoid air cells are clear. Globes and orbits are intact.. IMPRESSION: 1. No acute intracranial abnormality. 2. Moderate atrophy. CYNDI PEREZ MD Mar 27, 2021 08:53
[2021-03-27] MEDS ORDERED: MAGNESIUM SULFATE 2GM 50 ML IV PRN (09:00)
[2021-03-27] MEDS ORDERED: MULTIVIT INFUSN,ADULT 4,VIT K 10 ML, THIAMINE INJ 100 MG, FOLIC ACID INJ 1 MG in IV NOR... IV SCH (09:00)
[2021-03-27] MEDS: THIAMINE 100 MG TABLET. PO SCH (09:12)
[2021-03-27] MEDS: SENNOSIDES/DOCUSATE 8.6/50MG TABLET. PO SCH ×2 (09:12→20:17)
[2021-03-27] MEDS: FOLIC ACID 1 MG TABLET. PO SCH (09:12)
[2021-03-27] MEDS: MULTIVITAMIN with MINERAL TABLET. PO SCH (09:12)
[2021-03-27] MEDS: POTASSIUM CHLORIDE 20 MEQ TABLET.ER. PO SCH ×2 (09:20→13:14)
[2021-03-27] MEDS: IV 1/2 NORMAL SALINE 1,000 ML IV SCH ×2 (09:31→21:57)
--- NOTE | 2021-03-27 10:50 | PDOC ---
[employer] PROGRESS NOTE Date of Service DOS: DATE: 03/27/21 TIME: 10:48 Chief Complaint Chief Complaint Weakness History of Present Illness History of Present Illness HPI: Patient very poor historian, not really give a reliable history thus below was from emergency department Patient is a 61-year-old male presents to the emergency department via EMS chief complaint of "my family is making me come here ". Patient does complain of being a 10 or more beer per day drinker every day since he was 18 years old. Patient reports quitting drinking this past Sunday because he could no longer afford alcohol. Patient reports since quitting drinking last Sunday he has become weak, feeling cold, and having fainting spells. Patient denies hitting his head. Patient denies aches or pains. Patient reports he feels very thirsty. Patient denies increased urination. Patient denies chest pain, shortness of breath, chest congestion or nasal congestion. Patient states he has not seen a primary care physician since he was 18 years old. Patient reports having an appointment to see a primary care physician at [facility] this next Sunday. Patient's brother at bedside reports the patient has had recent confusion, has had recent falls when he would come to see him. Is worried that he may be failure to thrive. Patient's brother states he felt he could not wait until his doctor's appointment this coming Sunday and brought him to the emergency department today for evaluation. Patient denies allergies to medications, takes no [id number] medications nor prescription medications. Patient denies cigarette smoking, denies drug use, states he only drinks beer. 03/27 Evaluated patient at bedside today he was eating breakfast had no complaints. Does still seem a bit altered from my point of view. Was asking me about discharge informed him definitely not today. Nephro following. Okay to transfer out of ICU. Vitals/I&O Vitals/I&O: Vital Signs Date Time Temp Pulse Resp B/P (MAP) Pulse Ox O2 Delivery O2 Flow Rate FiO2 03/27/21 10:00 74 23 95/51 (66) 100 Room Air 03/27/21 08:00 98.4 98.4 I & O 03/26/21 03/26/21 03/27/21 15:00 23:00 07:00 Intake Total 1011.2 ml 915 ml Output Total 0 ml 15 ml Balance 1011.2 ml 900 ml Physical Exam General: Alert, Cooperative, No acute distress Heart: Regular rate, Normal S1, Normal S2 Lungs: Clear Abdomen: Normal bowel sounds, Soft, No tenderness Extremities: No edema, Normal pulses Skin: No significant lesion Labs Labs: Laboratory Tests Test 03/26/21 14:30 03/26/21 22:30 03/27/21 04:50 White Blood Count 7.7 x10^3/uL (4.0-11.0) Red Blood Count 4.08 x10^6/uL (4.30-5.70) Hemoglobin 13.3 g/dL (13.0-17.5) Hematocrit 38.5 % (39.0-53.0) Mean Corpuscular Volume 94 fL (79-100) Mean Corpuscular Hemoglobin 33 pg (25-35) Mean Corpuscular Hemoglobin Concent 35 g/dL (31-37) Red Cell Distribution Width 13.1 % (11.5-14.5) Platelet Count 157 x10^3/uL (140-400) Neutrophils (%) (Auto) 84 % (31-73) Lymphocytes (%) (Auto) 11 % (24-48) Monocytes (%) (Auto) 4 % (0-9) Eosinophils (%) (Auto) 0 % (0-3) Basophils (%) (Auto) 1 % (0-3) Neutrophils # (Auto) 6.4 x10^3/uL (1.8-7.7) Lymphocytes # (Auto) 0.9 x10^3/uL (1.0-4.8) Monocytes # (Auto) 0.3 x10^3/uL (0.0-1.1) Eosinophils # (Auto) 0.0 x10^3/uL (0.0-0.7) Basophils # (Auto) 0.0 x10^3/uL (0.0-0.2) Prothrombin Time 15.6 SEC (11.7-14.0) Prothromb Time International Ratio 1.2 (0.8-1.1) Activated Partial Thromboplast Time 33 SEC (24-38) Sodium Level 113 mmol/L (136-145) 115 mmol/L (136-145) 120 mmol/L (136-145) Potassium Level 3.7 mmol/L (3.5-5.1) 3.3 mmol/L (3.5-5.1) Chloride Level 78 mmol/L (98-107) 85 mmol/L (98-107) Carbon Dioxide Level 14 mmol/L (21-32) 24 mmol/L (21-32) Anion Gap 21 (6-14) 11 (6-14) Blood Urea Nitrogen 45 mg/dL (8-26) Creatinine 1.7 mg/dL (0.7-1.3) Estimated GFR (Cockcroft-Gault) 41.2 BUN/Creatinine Ratio 26 (6-20) Glucose Level 131 mg/dL (70-99) Calcium Level 8.4 mg/dL (8.5-10.1) Phosphorus Level 6.0 mg/dL (2.6-4.7) Magnesium Level 2.8 mg/dL (1.8-2.4) Total Bilirubin 2.1 mg/dL (0.2-1.0) Direct Bilirubin 0.7 mg/dL (0.0-0.2) Aspartate Amino Transf (AST/SGOT) 24 U/L (15-37) Alanine Aminotransferase (ALT/SGPT) 31 U/L (16-63) Alkaline Phosphatase 92 U/L (46-116) Creatine Kinase 140 U/L (39-308) Creatine Kinase MB (Mass) 2.5 ng/mL (0.0-3.6) Creatine Kinase MB Relative Index 1.8 % (0-4) Troponin I Quantitative < 0.017 ng/mL (0.000-0.055) MO-Yis-K-Type Natriuretic Peptide 1955 pg/mL (0-124) Total Protein 6.9 g/dL (6.4-8.2) Albumin 2.6 g/dL (3.4-5.0) Albumin/Globulin Ratio 0.6 (1.0-1.7) Lipase 317 U/L (73-393) Ethyl Alcohol Level < 10 mg/dL (0-10) Uric Acid 10.8 mg/dL (3.5-7.2) Thyroid Stimulating Hormone (TSH) 2.160 uIU/mL (0.358-3.74) Free Thyroxine 1.04 ng/dL (0.76-1.46) Lactic Acid Level 1.3 mmol/L (0.4-2.0) Assessment and Plan Assessmemt and Plan Problems Medical Problems: (1) MAHESH (acute kidney injury) Status: Acute (2) Alcohol withdrawal syndrome Status: Acute (3) Alcoholism Status: Acute (4) Hypothermia Status: Acute Assessment/Plan Hyponatremia, MAHESH, hypothermia, alcohol abuse with suspected withdrawal -Admit to ICU for sodium of 113 patient's mentation borderline, improving -Elevated creatinine and many electrolyte abnormalities, nephrology consulted -CIWA protocol ordered for alcohol withdrawal -PAT team consulted -Multivitamin -Serum osmolality ordered for hyponatremia -Trend creatinine -DVT prophylaxis -Renal diet Comment Review of Relevant I have reviewed the following items natalie (where applicable) has been applied. Medications: Current Medications Medications (Trade) Dose Ordered Sig/Holger Route PRN Reason Start Time Stop Time Status Last Admin Dose Admin Multivitamins 10 ml/Thiamine HCl 100 mg/Folic Acid 1 mg/Sodium Chloride 1,011.2 ml @ 1,000.088 mls/hr 1X ONCE IV 03/26/21 15:30 03/26/21 16:30 DC 03/26/21 15:31 Multivitamins (Thera M Plus) 1 tab DAILY PO 03/27/21 09:00 03/27/21 09:12 Folic Acid (Folic Acid) 1 mg DAILY PO 03/27/21 09:00 03/27/21 09:12 Thiamine Mononitrate (Vitamin B-1) 100 mg DAILY PO 03/27/21 09:00 03/27/21 09:12 Senna/Docusate Sodium (Senna Plus) 1 tab BID PO 03/26/21 21:00 03/27/21 09:12 Heparin Sodium (Porcine) (Heparin Sodium) 5,000 unit Q8HRS SQ 03/26/21 22:00 03/27/21 05:54 Sodium Chloride 1,000 ml @ 75 mls/hr [id number] IV 03/26/21 20:15 03/26/21 22:37 DC 03/26/21 20:48 Sodium Bicarbonate 150 meq/Sterile Water 1,150 ml @ 125 mls/hr [id number] IV 03/26/21 23:00 03/27/21 08:56 DC 03/27/21 07:48 Sodium Chloride 1,000 ml @ 75 mls/hr [id number] IV 03/27/21 08:45 03/27/21 09:31 Potassium Chloride (Klor-Con) 40 meq [id number] PO 03/27/21 09:30 03/27/21 12:01 03/27/21 09:20 Justifications for Admission Other Justification ANTONIA HECK MD Mar 27, 2021 10:49
[2021-03-27 11:33] LABS: BILIRUBIN,URINE NEGATIVE (NEG); CLARITY,URINE CLEAR; COLOR,URINE YELLOW; NITRITE,URINE NEGATIVE (NEG); PH,URINE 5.5 (<5.0-8.0); PROTEIN,URINE NEGATIVE (NEG-TRACE)
[2021-03-27 11:38] LABS: BARBITURATES NEG (NEG); BENZODIAZEPINES NEG (NEG); CANNABINOIDS NEG (NEG); COCAINE NEG (NEG); METHADONE NEG (NEG); OPIATES NEG (NEG); PHENCYCLIDINE NEG (NEG)
[2021-03-27 11:40] LABS: AMPHETAMINE/METHAMPHETAMINE NEG (NEG)
[2021-03-27 11:52] LABS: BACTERIA,URINE 0 /HPF (0-FEW); RBC,URINE 0 /HPF (0-2); WBC,URINE 0 /HPF (0-4)
[2021-03-28] VITALS (7 sets, daily range): BP systolic 90–122; BP diastolic 55–67
[2021-03-28 03:58] LABS: ALBUMIN 2.1 g/dL (3.4-5.0); ALBUMIN/GLOBULIN RATIO 0.6 (1.0-1.7); CREATININE 0.7 mg/dL (0.7-1.3); GFR 114.6; PHOSPHORUS 2.8 mg/dL (2.6-4.7); POTASSIUM 4.7 mmol/L (3.5-5.1); TOTAL BILIRUBIN 1.6 mg/dL (0.2-1.0); TOTAL PROTEIN 5.7 g/dL (6.4-8.2)
[2021-03-28] MEDS ORDERED: SODIUM CHLORIDE 23.4% 38.5 MEQ in IV STERILE WATER 1,000 ML IV SCH (05:00)
[2021-03-28] MEDS: HEPARIN for SUB-Q USE 5,000 UNIT/ML VIAL. SQ SCH ×3 (06:08→21:37)
--- NOTE | 2021-03-28 08:44 | PDOC ---
PROGRESS NOTES Date of Service: DATE: 03/28/21 TIME: 08:44 Chief Complaint Chief Complaint Weakness History of Present Illness History of Present Illness HPI: Patient very poor historian, not really give a reliable history thus below was from emergency department Patient is a 61-year-old male presents to the emergency department via EMS chief complaint of "my family is making me come here ". Patient does complain of being a 10 or more beer per day drinker every day since he was 18 years old. Patient reports quitting drinking this past Sunday because he could no longer afford alcohol. Patient reports since quitting drinking last Sunday he has become weak, feeling cold, and having fainting spells. Patient denies hitting his head. Patient denies aches or pains. Patient reports he feels very thirsty. Patient denies increased urination. Patient denies chest pain, shortness of breath, chest congestion or nasal congestion. Patient states he has not seen a primary care physician since he was 18 years old. Patient reports having an appointment to see a primary care physician at [facility] this next Sunday. Patient's brother at bedside reports the patient has had recent confusion, has had recent falls when he would come to see him. Is worried that he may be failure to thrive. Patient's brother states he felt he could not wait until his doctor's appointment this coming Sunday and brought him to the emergency department today for evaluation. Patient denies allergies to medications, takes no [id number] medications nor prescription medications. Patient denies cigarette smoking, denies drug use, states he only drinks beer. 03/27 Evaluated patient at bedside today he was eating breakfast had no complaints. Does still seem a bit altered from my point of view. Was asking me about discharge informed him definitely not today. Nephro following. Okay to transfer out of ICU. 03/28 Evaluated patient at bedside today no complaints. altered but cooperative Nephro following. . na 131 admit 113 Moderate cerebral atrophy. alb 2.1 c/w severe protein-caloric malnutrition 33 min cc time Vitals Vitals Vital Signs Date Time Temp Pulse Resp B/P (MAP) Pulse Ox O2 Delivery O2 Flow Rate FiO2 03/28/21 08:00 Room Air 03/28/21 08:00 97.5 56 12 107/58 (74) 95 97.5 Physical Exam General: Alert, Cooperative, No acute distress Heart: Regular rate, Normal S1, Normal S2 Lungs: Clear Abdomen: Normal bowel sounds, Soft, No tenderness Extremities: No edema, Normal pulses Skin: No significant lesion Labs LABS PATIENT: KALIN MAHONEY ACCOUNT: [id number] : 1960 LOCATION: ER AGE: 61 SEX: M EXAM STATUS: PRE ER ORD. PHYSICIAN: ALONZO COSTA APRN REASON: Confusion PROCEDURE: CT HEAD WO CONTRAST EXAM: CT head without contrast INDICATION: Confusion COMPARISON: None TECHNIQUE: Axial CT imaging through the head without intravenous contrast. One or more of the following individualized dose reduction techniques were utilized for this examination: 1. Automated exposure control 2. Adjustment of the mA and/or kV according to patient size 3. Use of iterative reconstruction technique. FINDINGS: The ventricles and sulci are moderately enlarged. There is mild periventricular white matter hypoattenuation. Mcclellan-white matter differentiation is maintained. There is no intracranial hemorrhage, acute infarct, or mass lesion. Basal cisterns are clear. The skull and scalp are intact. Paranasal sinuses and mastoid air cells are clear. Globes and orbits are intact.. IMPRESSION: 1. No acute intracranial abnormality. 2. Moderate atrophy. Electronically signed by: Susan Castaneda MD (03/26/2021 2:48 PM) [id number] DICTATED and SIGNED BY: SUSAN CASTANEDA MD DATE: 03/26/21 [id number] RUN TIME: 1441 Specimen Inquiry PATIENT: KALIN MAHONEY ACCT: [id number] LOC: 1 [facility] ICU U: [id number] AGE/SX: 61/M ROOM: 109 RE03/26/[address]: ANTONIA HECK MD : 1960 BED: 1 DIS: STATUS: ADM IN TLOC: SPEC #: [id number] GAY: 03/26/21 STATUS: RES REQ #: [id number] RECD: 03/26/21 [facility] DR: ALONZO COSTA APRN SOURCE: BLOOD ENTR: 03/26/[address]: SPDES: ORDERED: BCULT Procedure Result BLOOD CULTURE Preliminary NO GROWTH AFTER 1 DAY Laboratory Tests Test 03/28/21 03:05 Hemoglobin 10.7 g/dL (13.0-17.5) Sodium Level 131 mmol/L (136-145) Potassium Level 4.7 mmol/L (3.5-5.1) Chloride Level 96 mmol/L (98-107) Carbon Dioxide Level 27 mmol/L (21-32) Anion Gap 8 (6-14) Blood Urea Nitrogen 13 mg/dL (8-26) Creatinine 0.7 mg/dL (0.7-1.3) Estimated GFR (Cockcroft-Gault) 114.6 BUN/Creatinine Ratio 19 (6-20) Glucose Level 73 mg/dL (70-99) Calcium Level 8.0 mg/dL (8.5-10.1) Phosphorus Level 2.8 mg/dL (2.6-4.7) Magnesium Level 2.8 mg/dL (1.8-2.4) Total Bilirubin 1.6 mg/dL (0.2-1.0) Aspartate Amino Transf (AST/SGOT) 25 U/L (15-37) Alanine Aminotransferase (ALT/SGPT) 24 U/L (16-63) Alkaline Phosphatase 73 U/L (46-116) Total Protein 5.7 g/dL (6.4-8.2) Albumin 2.1 g/dL (3.4-5.0) Albumin/Globulin Ratio 0.6 (1.0-1.7) Assessment and Plan Assessmemt and Plan Problems Medical Problems: (1) MAHESH (acute kidney injury) Status: Acute (2) Alcohol withdrawal syndrome Status: Acute (3) Alcoholism Status: Acute (4) Hypothermia Status: Acute Comment Review of Relevant I have reviewed the following items natalie (where applicable) has been applied. Labs Laboratory Tests Test 03/26/21 11:14 03/26/21 14:30 03/26/21 22:30 03/27/21 04:50 Urine Collection Type Unknown Urine Color Yellow Urine Clarity Clear Urine pH 5.5 (<5.0-8.0) Urine Specific Coggon <=1.005 (1.000-1.030) Urine Protein Negative mg/dL (NEG-TRACE) Urine Glucose (UA) Negative mg/dL (NEG) Urine Ketones (Stick) 15 mg/dL (NEG) Urine Blood Negative (NEG) Urine Nitrite Negative (NEG) Urine Bilirubin Negative (NEG) Urine Urobilinogen Dipstick 1.0 mg/dL (0.2 mg/dL) Urine Leukocyte Esterase Negative (NEG) Urine RBC 0 /HPF (0-2) Urine WBC 0 /HPF (0-4) Urine Squamous Epithelial Cells Few /LPF Urine Bacteria 0 /HPF (0-FEW) Urine Mucus Slight /LPF Urine Opiates Screen Neg (NEG) Urine Methadone Screen Neg (NEG) Urine Barbiturates Neg (NEG) Urine Phencyclidine Screen Neg (NEG) Urine Amphetamine/Methamphetamine Neg (NEG) Urine Benzodiazepines Screen Neg (NEG) Urine Cocaine Screen Neg (NEG) Urine Cannabinoids Screen Neg (NEG) Urine Ethyl Alcohol Neg (NEG) White Blood Count 7.7 x10^3/uL (4.0-11.0) Red Blood Count 4.08 x10^6/uL (4.30-5.70) Hemoglobin 13.3 g/dL (13.0-17.5) Hematocrit 38.5 % (39.0-53.0) Mean Corpuscular Volume 94 fL (79-100) Mean Corpuscular Hemoglobin 33 pg (25-35) Mean Corpuscular Hemoglobin Concent 35 g/dL (31-37) Red Cell Distribution Width 13.1 % (11.5-14.5) Platelet Count 157 x10^3/uL (140-400) Neutrophils (%) (Auto) 84 % (31-73) Lymphocytes (%) (Auto) 11 % (24-48) Monocytes (%) (Auto) 4 % (0-9) Eosinophils (%) (Auto) 0 % (0-3) Basophils (%) (Auto) 1 % (0-3) Neutrophils # (Auto) 6.4 x10^3/uL (1.8-7.7) Lymphocytes # (Auto) 0.9 x10^3/uL (1.0-4.8) Monocytes # (Auto) 0.3 x10^3/uL (0.0-1.1) Eosinophils # (Auto) 0.0 x10^3/uL (0.0-0.7) Basophils # (Auto) 0.0 x10^3/uL (0.0-0.2) Prothrombin Time 15.6 SEC (11.7-14.0) Prothromb Time International Ratio 1.2 (0.8-1.1) Activated Partial Thromboplast Time 33 SEC (24-38) Sodium Level 113 mmol/L (136-145) 115 mmol/L (136-145) 120 mmol/L (136-145) Potassium Level 3.7 mmol/L (3.5-5.1) 3.3 mmol/L (3.5-5.1) Chloride Level 78 mmol/L (98-107) 85 mmol/L (98-107) Carbon Dioxide Level 14 mmol/L (21-32) 24 mmol/L (21-32) Anion Gap 21 (6-14) 11 (6-14) Blood Urea Nitrogen 45 mg/dL (8-26) Creatinine 1.7 mg/dL (0.7-1.3) Estimated GFR (Cockcroft-Gault) 41.2 BUN/Creatinine Ratio 26 (6-20) Glucose Level 131 mg/dL (70-99) Calcium Level 8.4 mg/dL (8.5-10.1) Phosphorus Level 6.0 mg/dL (2.6-4.7) Magnesium Level 2.8 mg/dL (1.8-2.4) Total Bilirubin 2.1 mg/dL (0.2-1.0) Direct Bilirubin 0.7 mg/dL (0.0-0.2) Aspartate Amino Transf (AST/SGOT) 24 U/L (15-37) Alanine Aminotransferase (ALT/SGPT) 31 U/L (16-63) Alkaline Phosphatase 92 U/L (46-116) Creatine Kinase 140 U/L (39-308) Creatine Kinase MB (Mass) 2.5 ng/mL (0.0-3.6) Creatine Kinase MB Relative Index 1.8 % (0-4) Troponin I Quantitative < 0.017 ng/mL (0.000-0.055) NF-Vts-P-Type Natriuretic Peptide 1955 pg/mL (0-124) Total Protein 6.9 g/dL (6.4-8.2) Albumin 2.6 g/dL (3.4-5.0) Albumin/Globulin Ratio 0.6 (1.0-1.7) Lipase 317 U/L (73-393) Ethyl Alcohol Level < 10 mg/dL (0-10) Uric Acid 10.8 mg/dL (3.5-7.2) Thyroid Stimulating Hormone (TSH) 2.160 uIU/mL (0.358-3.74) Free Thyroxine 1.04 ng/dL (0.76-1.46) Lactic Acid Level 1.3 mmol/L (0.4-2.0) Test 03/28/21 03:05 Hemoglobin 10.7 g/dL (13.0-17.5) Sodium Level 131 mmol/L (136-145) Potassium Level 4.7 mmol/L (3.5-5.1) Chloride Level 96 mmol/L (98-107) Carbon Dioxide Level 27 mmol/L (21-32) Anion Gap 8 (6-14) Blood Urea Nitrogen 13 mg/dL (8-26) Creatinine 0.7 mg/dL (0.7-1.3) Estimated GFR (Cockcroft-Gault) 114.6 BUN/Creatinine Ratio 19 (6-20) Glucose Level 73 mg/dL (70-99) Calcium Level 8.0 mg/dL (8.5-10.1) Phosphorus Level 2.8 mg/dL (2.6-4.7) Magnesium Level 2.8 mg/dL (1.8-2.4) Total Bilirubin 1.6 mg/dL (0.2-1.0) Aspartate Amino Transf (AST/SGOT) 25 U/L (15-37) Alanine Aminotransferase (ALT/SGPT) 24 U/L (16-63) Alkaline Phosphatase 73 U/L (46-116) Total Protein 5.7 g/dL (6.4-8.2) Albumin 2.1 g/dL (3.4-5.0) Albumin/Globulin Ratio 0.6 (1.0-1.7) Laboratory Tests Test 03/28/21 03:05 Hemoglobin 10.7 g/dL (13.0-17.5) Sodium Level 131 mmol/L (136-145) Potassium Level 4.7 mmol/L (3.5-5.1) Chloride Level 96 mmol/L (98-107) Carbon Dioxide Level 27 mmol/L (21-32) Anion Gap 8 (6-14) Blood Urea Nitrogen 13 mg/dL (8-26) Creatinine 0.7 mg/dL (0.7-1.3) Estimated GFR (Cockcroft-Gault) 114.6 BUN/Creatinine Ratio 19 (6-20) Glucose Level 73 mg/dL (70-99) Calcium Level 8.0 mg/dL (8.5-10.1) Phosphorus Level 2.8 mg/dL (2.6-4.7) Magnesium Level 2.8 mg/dL (1.8-2.4) Total Bilirubin 1.6 mg/dL (0.2-1.0) Aspartate Amino Transf (AST/SGOT) 25 U/L (15-37) Alanine Aminotransferase (ALT/SGPT) 24 U/L (16-63) Alkaline Phosphatase 73 U/L (46-116) Total Protein 5.7 g/dL (6.4-8.2) Albumin 2.1 g/dL (3.4-5.0) Albumin/Globulin Ratio 0.6 (1.0-1.7) Microbiology 03/26/21 Blood Culture - Preliminary, Resulted NO GROWTH AFTER 1 DAY Medications Current Medications Multivitamins 10 ml/Thiamine HCl 100 mg/Folic Acid 1 mg/Sodium Chloride 1,011.2 ml @ 1,000.088 mls/hr 1X ONCE IV Last administered on 03/26/21at 15:31; Start 03/26/21 at 15:30; Stop 03/26/21 at 16:30; Status DC Multivitamins 10 ml/Thiamine HCl 100 mg/Folic Acid 1 mg/Sodium Chloride 1,011.2 ml @ 100 mls/ hr DAILY IV ; Start 03/27/21 at 09:00; Stop 03/26/21 at 22:37; Status DC Multivitamins (Thera M Plus) 1 tab DAILY PO Last administered on 03/27/21at 09:12; Start 03/27/21 at 09:00 Folic Acid (Folic Acid) 1 mg DAILY PO Last administered on 03/27/21at 09:12; Start 03/27/21 at 09:00 Thiamine Mononitrate (Vitamin B-1) 100 mg DAILY PO Last administered on 03/27/21at 09:12; Start 03/27/21 at 09:00 Lorazepam (Ativan) 4 mg PRN Q1HR PRN PO For CIWA 8-14; Start 03/26/21 at 16:00 Lorazepam (Ativan) 8 mg PRN Q1HR PRN PO For CIWA 15 or greater; Start 03/26/21 at 16:00 Albuterol/ Ipratropium (Duoneb) 3 ml QID NEB ; Start 03/26/21 at 17:00; Stop 03/27/21 at 01:39; Status DC Ondansetron HCl (Zofran) 4 mg PRN Q6HRS PRN IVP NAUSEA/VOMITING; Start 03/26/21 at 16:15 Calcium Carbonate/ Glycine (Tums) 500 mg PRN Q3HRS PRN PO UPSET STOMACH; Start 03/26/21 at 16:15 Zolpidem Tartrate (Ambien) 5 mg PRN QHS PRN PO INSOMNIA, MAY REPEAT IN 1HR; Start 03/26/21 at 16:15 Info (Non-Icu Electrolyte Protocol) 1 ea PRN DAILY PRN MC SEE COMMENTS; Start 03/26/21 at 16:15 Oxycodone/ Acetaminophen (Percocet 5/325) 1 tab PRN Q4HRS PRN PO MILD PAIN, 1ST CHOICE; Start 03/26/21 at 16:15 Oxycodone/ Acetaminophen (Percocet 5/325) 2 tab PRN Q4HRS PRN PO MODERATE PAIN, SEVERE PAIN; Start 03/26/21 at 16:15 Acetaminophen (Tylenol) 650 mg PRN Q6HRS PRN PO Headaches, Temp > 101.5F; Start 03/26/21 at 16:15 Senna/Docusate Sodium (Senna Plus) 1 tab BID PO Last administered on 03/27/21at 20:17; Start 03/26/21 at 21:00 Heparin Sodium (Porcine) (Heparin Sodium) 5,000 unit Q8HRS SQ Last administered on 03/28/21at 06:08; Start 03/26/21 at 22:00 Sodium Chloride 1,000 ml @ 75 mls/hr [id number] IV Last administered on 03/26/21at 20:48; Start 03/26/21 at 20:15; Stop 03/26/21 at 22:37; Status DC Sodium Bicarbonate 150 meq/Sterile Water 1,150 ml @ 125 mls/hr [id number] IV Last administered on 03/27/21at 07:48; Start 03/26/21 at 23:00; Stop 03/27/21 at 08:56; Status DC Albuterol Sulfate (Ventolin Neb Soln) 2.5 mg PRN QID PRN NEB SHORTNESS OF BREATH; Start 03/27/21 at 01:45 Sodium Chloride 1,000 ml @ 75 mls/hr [id number] IV Last administered on 03/27/21at 21:57; Start 03/27/21 at 08:45; Stop 03/28/21 at 04:33; Status DC Magnesium Sulfate 50 ml @ 25 mls/hr PRN DAILY PRN IV for Mag < 1.7 on am labs; Start 03/27/21 at 09:00 Potassium Chloride (Klor-Con) 40 meq [id number] PO Last administered on 03/27/21at 13:14; Start 03/27/21 at 09:30; Stop 03/27/21 at 12:01; Status DC Sodium Chloride 38.5 meq/Sterile Water 1,009.625 ml @ 75 mls/hr [id number] IV Last administered on 03/28/21at 04:40; Start 03/28/21 at 05:00 Vitals/I & O Vital Sign - Last 24 Hours 03/27/21 03/27/21 03/27/21 03/27/21 09:00 10:00 12:00 16:00 Temp 98.0 98.0 Pulse 68 74 73 66 Resp 12 23 16 12 B/P (MAP) 100/56 (71) 95/51 (66) 91/51 (64) 90/60 (70) Pulse Ox 100 100 97 100 O2 Delivery Room Air Room Air Room Air Room Air 03/27/21 03/27/21 03/28/21 03/28/21 20:00 20:00 00:00 04:00 Temp 97.7 97.5 97.7 97.7 97.5 97.7 Pulse 60 60 60 Resp 16 14 16 B/P (MAP) 89/54 (66) 90/55 (67) 102/61 (75) Pulse Ox 100 99 99 O2 Delivery Room Air Room Air Room Air Room Air 03/28/21 03/28/21 08:00 08:00 Temp 97.5 97.5 Pulse 56 Resp 12 B/P (MAP) 107/58 (74) Pulse Ox 95 O2 Delivery Room Air Room Air Intake and Output 03/27/21 03/27/21 03/28/21 15:00 23:00 07:00 Intake Total 20 ml 1188 ml 853.61 ml Output Total 2800 ml 700 ml 580 ml Balance -2780 ml 488 ml 273.61 ml Justicifation of Admission Dx: Justifications for Admission: Justification of Admission Dx: Yes Sepsis: Altered Mental Status DEISI MURRELL MD Mar 28, 2021 08:44
--- NOTE | 2021-03-28 09:02 | RAD ---
EXAMINATION: US ABDOMEN COMPLETE INDICATION: 61 years, Male, acute kidney injury, alcoholism. COMPARISON: None TECHNIQUE: Grayscale, color Doppler and limited spectral Doppler images of the abdomen were obtained. FINDINGS: LIVER: SIZE (LENGTH): 13.5 cm. ECHOGENICITY: Increased. PARENCHYMA: Mild heterogeneous echotexture. No discrete focal lesion. INTRAHEPATIC BILE DUCTS: Nondilated. PORTAL VEIN: Patent with normal hepatopedal flow. GALLBLADDER: GALLBLADDER WALL THICKNESS: 2 mm MORPHOLOGY: Normal morphology. No wall hyperemia or pericholecystic free fluid. LUMEN: Gallbladder sludge. COMMON BILE DUCT DIAMETER: 4 mm RIGHT KIDNEY: MEASURES: 11.4 cm in length. MORPHOLOGY/PARENCHYMA: Normal corticomedullary differentiation with no shadowing calculus or discrete masses. COLLECTING SYSTEM: No hydronephrosis. LEFT KIDNEY: MEASURES: 10.2 cm in length MORPHOLOGY/PARENCHYMA: Normal corticomedullary differentiation with no shadowing calculus or discrete masses. COLLECTING SYSTEM: No hydronephrosis. SPLEEN: SIZE (LENGTH): 8.5 cm PARENCHYMA: Unremarkable. PANCREAS: VISUALIZED PORTIONS: Head and proximal body. APPEARANCE: Within normal limits. OTHER: RETROPERITONEUM, INFERIOR VENA CAVA: Normal caliber. AORTA: Normal caliber measures up to 2.0 cm FLUID: Trace amount of perisplenic free fluid. IMPRESSION: 1. Moderate diffuse hepatic steatosis. 2. Gallbladder biliary sludge without sonographic evidence of acute cholecystitis. 3. Trace amount of perisplenic free fluid. Electronically signed by: Aleja Boothe MD (03/28/2021 8:59 AM) [facility]
[2021-03-28] MEDS: SENNOSIDES/DOCUSATE 8.6/50MG TABLET. PO SCH ×2 (09:23→21:27)
[2021-03-28] MEDS: FOLIC ACID 1 MG TABLET. PO SCH (09:23)
[2021-03-28] MEDS: THIAMINE 100 MG TABLET. PO SCH (09:23)
[2021-03-28] MEDS: MULTIVITAMIN with MINERAL TABLET. PO SCH (09:23)
--- NOTE | 2021-03-28 09:42 | PDOC ---
DATE OF SERVICE DATE: 03/28/21 TIME: 09:42 SUBJECTIVE ROS Propped up in bed, eating Lunch Denies any Complaints, No N/V. No SOB OBJECTIVE Vital Signs Vital Signs Date Time Temp Pulse Resp B/P (MAP) Pulse Ox O2 Delivery O2 Flow Rate FiO2 03/28/21 08:00 Room Air 03/28/21 08:00 97.5 56 12 107/58 (74) 95 97.5 I & 0 Intake and Output 03/28/21 07:00 Intake Total 2061.61 ml Output Total 4080 ml Balance -2018.39 ml Intake Oral 170 ml IV Total 1891.61 ml Output Urine Total 4080 ml PHYSICAL EXAM Physical Exam General Appearance: Awake Alert Oriented x 1 -2 In no Distress HEEN: No EN Drainage Mucous Memb. drysih Neck: Supple CVS: S1 S2 no Murmur Resp: no Rales no Rhonchi no Acc. Muscle use GI: BAS +ve NO Bruit Non Tender Non Distended : no CVA tenderness; no Suprapubic Tenderness, [place] + SKIN: no Rashes NEURO: Good Strength and Tone, No gross focal deficit DIAGNOSIS/ASSESSMENT Assessment & Plan Hyponatremia: asymptomatic at presentation. Serum osmolality was ordered but is not reported yet. Serum alcohol levels were undetectable. Etiology of hyponatremia appears to be poor p.o. intake and intravascular volume depletion. Patient was noted to be hypotensive also at times Patient has been given isotonic fluids and sodium has corrected to 120 and so fluids have been changed to hypotonic fluids. Na Improved , only midly low. Recommend DC IVF , supportive care, I/O . Acute kidney injury:POA- Resolved ; 2/2 intravascular volume depletion Hypotension: Suspect due to intravascular volume depletion , resolved Hyperphosphatemia: Resolved , Monitor Hypokalemia- resolved HypoMg- Mg High, DC IV Mg Alcohol abuse with suspected withdrawal per primary COMMENT/RELEVANT DATA Meds Current Medications Medications (Trade) Dose Ordered Sig/Holger Start Time Stop Time Status Last Admin Dose Admin Acetaminophen (Tylenol) 650 mg PRN Q6HRS PRN 03/26/21 16:15 Albuterol Sulfate (Ventolin Neb Soln) 2.5 mg PRN QID PRN 03/27/21 01:45 Albuterol/ Ipratropium (Duoneb) 3 ml QID 03/26/21 17:00 03/27/21 01:39 DC Calcium Carbonate/ Glycine (Tums) 500 mg PRN Q3HRS PRN 03/26/21 16:15 Folic Acid (Folic Acid) 1 mg DAILY 03/27/21 09:00 03/28/21 09:23 1 MG Heparin Sodium (Porcine) (Heparin Sodium) 5,000 unit Q8HRS 03/26/21 22:00 03/28/21 06:08 5,000 UNIT Info (Non-Icu Electrolyte Protocol) 1 ea PRN DAILY PRN 03/26/21 16:15 Lorazepam (Ativan) 8 mg PRN Q1HR PRN 03/26/21 16:00 Magnesium Sulfate 50 ml @ 25 mls/hr PRN DAILY PRN 03/27/21 09:00 Multivitamins (Thera M Plus) 1 tab DAILY 03/27/21 09:00 03/28/21 09:23 1 TAB Multivitamins 10 ml/Thiamine HCl 100 mg/Folic Acid 1 mg/Sodium Chloride 1,011.2 ml @ 100 mls/ hr DAILY 03/27/21 09:00 03/26/21 22:37 DC Ondansetron HCl (Zofran) 4 mg PRN Q6HRS PRN 03/26/21 16:15 Oxycodone/ Acetaminophen (Percocet 5/325) 2 tab PRN Q4HRS PRN 03/26/21 16:15 Potassium Chloride (Klor-Con) 40 meq [id number] 03/27/21 09:30 03/27/21 12:01 DC 03/27/21 13:14 40 MEQ Senna/Docusate Sodium (Senna Plus) 1 tab BID 03/26/21 21:00 03/28/21 09:23 1 TAB Sodium Bicarbonate 150 meq/Sterile Water 1,150 ml @ 125 mls/hr Q9H12M 03/26/21 23:00 03/27/21 08:56 DC 03/27/21 07:48 125 MLS/HR Sodium Chloride 38.5 meq/Sterile Water 1,009.625 ml @ 75 mls/hr [id number] 03/28/21 05:00 03/28/21 04:40 75 MLS/HR Thiamine Mononitrate (Vitamin B-1) 100 mg DAILY 03/27/21 09:00 03/28/21 09:23 100 MG Zolpidem Tartrate (Ambien) 5 mg PRN QHS PRN 03/26/21 16:15 Lab Laboratory Tests Test 03/28/21 03:05 Hemoglobin 10.7 g/dL (13.0-17.5) Sodium Level 131 mmol/L (136-145) Potassium Level 4.7 mmol/L (3.5-5.1) Chloride Level 96 mmol/L (98-107) Carbon Dioxide Level 27 mmol/L (21-32) Anion Gap 8 (6-14) Blood Urea Nitrogen 13 mg/dL (8-26) Creatinine 0.7 mg/dL (0.7-1.3) Estimated GFR (Cockcroft-Gault) 114.6 BUN/Creatinine Ratio 19 (6-20) Glucose Level 73 mg/dL (70-99) Calcium Level 8.0 mg/dL (8.5-10.1) Phosphorus Level 2.8 mg/dL (2.6-4.7) Magnesium Level 2.8 mg/dL (1.8-2.4) Total Bilirubin 1.6 mg/dL (0.2-1.0) Aspartate Amino Transf (AST/SGOT) 25 U/L (15-37) Alanine Aminotransferase (ALT/SGPT) 24 U/L (16-63) Alkaline Phosphatase 73 U/L (46-116) Total Protein 5.7 g/dL (6.4-8.2) Albumin 2.1 g/dL (3.4-5.0) Albumin/Globulin Ratio 0.6 (1.0-1.7) Results All relevant outside records, renal labs, imaging studies, telemetry/EKG's were reviewed. Justicifation of Admission Dx: Justifications for Admission: Justification of Admission Dx: N/A AMADA BEGUM MD Mar 28, 2021 09:42
--- NOTE | 2021-03-28 09:55 | NUR ---
SS following for discharge planning. SS reviewed pt chart and discussed with pt RN. Pt is from home and is currently on room air. PT/OT ordered. ETOH. PAT team referral made for assessment and recommendations. Pt upgraded to [email or web address]. SS will continue to follow for discharge planning. Addendum: 03/28/21 at 1326 by BARBARA COYNE SS PAT team met with pt and provided resources.
[2021-03-28] MEDS ORDERED: ELECTROLYTE (ICU) PROTOCOL. MC PRN (10:45)
[2021-03-29 02:44] VITALS: BP 101/59
[2021-03-29] MEDS: HEPARIN for SUB-Q USE 5,000 UNIT/ML VIAL. SQ SCH ×3 (05:51→21:22)
[2021-03-29 08:00] VITALS: BP 117/65
[2021-03-29 08:20] LABS: ALBUMIN 2.1 g/dL (3.4-5.0); CALCIUM 8.4 mg/dL (8.5-10.1); CREATININE 0.6 mg/dL (0.7-1.3); PHOSPHORUS 2.3 mg/dL (2.6-4.7); POTASSIUM 3.8 mmol/L (3.5-5.1)
[2021-03-29] MEDS: FOLIC ACID 1 MG TABLET. PO SCH (09:29)
[2021-03-29] MEDS: SENNOSIDES/DOCUSATE 8.6/50MG TABLET. PO SCH ×2 (09:29→21:00)
[2021-03-29] MEDS: THIAMINE 100 MG TABLET. PO SCH (09:29)
[2021-03-29] MEDS: MULTIVITAMIN with MINERAL TABLET. PO SCH (09:29)
--- NOTE | 2021-03-29 10:43 | PDOC ---
DATE OF SERVICE DATE: 03/29/21 TIME: 10:43 SUBJECTIVE ROS No acute events overnight No complaints OBJECTIVE Vital Signs Vital Signs Date Time Temp Pulse Resp B/P (MAP) Pulse Ox O2 Delivery O2 Flow Rate FiO2 03/29/21 08:00 97.9 117/65 (82) 97.9 03/29/21 04:00 Room Air 03/29/21 02:44 65 18 100 I & 0 Intake and Output 03/29/21 06:59 Intake Total 1200 ml Output Total 3975 ml Balance -2775 ml Intake Oral 1200 ml Output Urine Total 3975 ml PHYSICAL EXAM Physical Exam General Appearance: Awake Alert Oriented x 1 -2 In no Distress HEEN: No EN Drainage Mucous Memb. drysih Neck: Supple CVS: S1 S2 no Murmur Resp: no Rales no Rhonchi no Acc. Muscle use GI: BAS +ve NO Bruit Non Tender Non Distended : no CVA tenderness; no Suprapubic Tenderness, [place] + SKIN: no Rashes NEURO: Good Strength and Tone, No gross focal deficit DIAGNOSIS/ASSESSMENT Assessment & Plan Hyponatremia: asymptomatic at presentation. Serum osmolality was ordered but is not reported yet. Serum alcohol levels were undetectable. Etiology of hyponatremia appears to be poor p.o. intake and intravascular volume depletion. Patient was noted to be hypotensive also at times. Na improved , mildly low, Monitor Acute kidney injury:POA- Resolved ; 2/2 intravascular volume depletion Hypotension: Suspect due to intravascular volume depletion , resolved Hyperphosphatemia: Resolved , Now Low Phos- 2/2 Refeeding syndrome - defer to primary Hypokalemia- resolved HypoMg- Mg High, DCed IV Mg Alcohol abuse with suspected withdrawal per primary COMMENT/RELEVANT DATA Meds Current Medications Medications (Trade) Dose Ordered Sig/Holger Start Time Stop Time Status Last Admin Dose Admin Acetaminophen (Tylenol) 650 mg PRN Q6HRS PRN 03/26/21 16:15 Albuterol Sulfate (Ventolin Neb Soln) 2.5 mg PRN QID PRN 03/27/21 01:45 Albuterol/ Ipratropium (Duoneb) 3 ml QID 03/26/21 17:00 03/27/21 01:39 DC Calcium Carbonate/ Glycine (Tums) 500 mg PRN Q3HRS PRN 03/26/21 16:15 Folic Acid (Folic Acid) 1 mg DAILY 03/27/21 09:00 03/29/21 09:29 1 MG Heparin Sodium (Porcine) (Heparin Sodium) 5,000 unit Q8HRS 03/26/21 22:00 03/29/21 05:51 5,000 UNIT Info (Icu Electrolyte Protocol) 1 ea CONT PRN PRN 03/28/21 10:45 Info (Non-Icu Electrolyte Protocol) 1 ea PRN DAILY PRN 03/26/21 16:15 03/28/21 10:37 DC Lorazepam (Ativan) 8 mg PRN Q1HR PRN 03/26/21 16:00 Magnesium Sulfate 50 ml @ 25 mls/hr PRN DAILY PRN 03/27/21 09:00 03/28/21 12:56 DC Multivitamins (Thera M Plus) 1 tab DAILY 03/27/21 09:00 03/29/21 09:29 1 TAB Multivitamins 10 ml/Thiamine HCl 100 mg/Folic Acid 1 mg/Sodium Chloride 1,011.2 ml @ 100 mls/ hr DAILY 03/27/21 09:00 03/26/21 22:37 DC Ondansetron HCl (Zofran) 4 mg PRN Q6HRS PRN 03/26/21 16:15 Oxycodone/ Acetaminophen (Percocet 5/325) 2 tab PRN Q4HRS PRN 03/26/21 16:15 Potassium Chloride (Klor-Con) 40 meq [id number] 03/27/21 09:30 03/27/21 12:01 DC 03/27/21 13:14 40 MEQ Senna/Docusate Sodium (Senna Plus) 1 tab BID 03/26/21 21:00 03/29/21 09:29 1 TAB Sodium Bicarbonate 150 meq/Sterile Water 1,150 ml @ 125 mls/hr Q9H12M 03/26/21 23:00 03/27/21 08:56 DC 03/27/21 07:48 125 MLS/HR Sodium Chloride 38.5 meq/Sterile Water 1,009.625 ml @ 75 mls/hr [id number] 03/28/21 05:00 03/28/21 12:59 DC 03/28/21 04:40 75 MLS/HR Thiamine Mononitrate (Vitamin B-1) 100 mg DAILY 03/27/21 09:00 03/29/21 09:29 100 MG Zolpidem Tartrate (Ambien) 5 mg PRN QHS PRN 03/26/21 16:15 Lab Laboratory Tests Test 03/29/21 06:05 Sodium Level 132 mmol/L (136-145) Potassium Level 3.8 mmol/L (3.5-5.1) Chloride Level 99 mmol/L (98-107) Carbon Dioxide Level 28 mmol/L (21-32) Anion Gap 5 (6-14) Blood Urea Nitrogen 6 mg/dL (8-26) Creatinine 0.6 mg/dL (0.7-1.3) Estimated GFR (Cockcroft-Gault) 137.0 Glucose Level 85 mg/dL (70-99) Calcium Level 8.4 mg/dL (8.5-10.1) Phosphorus Level 2.3 mg/dL (2.6-4.7) Magnesium Level 2.7 mg/dL (1.8-2.4) Albumin 2.1 g/dL (3.4-5.0) Results All relevant outside records, renal labs, imaging studies, telemetry/EKG's were reviewed. Justicifation of Admission Dx: Justifications for Admission: Justification of Admission Dx: Yes Sepsis: Altered Mental Status AMADA BEGUM MD Mar 29, 2021 10:43
--- NOTE | 2021-03-29 11:37 | PDOC ---
[employer] PROGRESS NOTE Date of Service DOS: DATE: 03/29/21 TIME: 11:34 Chief Complaint Chief Complaint Acute alcohol withdrawal Hyponatremia Weakness Severe malnutrition History of Present Illness History of Present Illness Patient is a 61-year-old male presents to the emergency department via EMS chief complaint of "my family is making me come here ". Patient does complain of being a 10 or more beer per day drinker every day since he was 18 years old. Patient reports quitting drinking this past Sunday because he could no longer afford alcohol. Patient reports since quitting drinking last Sunday he has become weak, feeling cold, and having fainting spells. Patient denies hitting his head. Patient denies aches or pains. Patient reports he feels very thirsty. Patient denies increased urination. Patient denies chest pain, shortness of breath, chest congestion or nasal congestion. Patient states he has not seen a primary care physician since he was 18 years old. Patient reports having an appointment to see a primary care physician at [facility] this next Sunday. Patient's brother at bedside reports the patient has had recent confusion, has had recent falls when he would come to see him. Is worried that he may be failure to thrive. Patient's brother states he felt he could not wait until his doctor's appointment this coming Sunday and brought him to the emergency department today for evaluation. Patient denies allergies to medications, takes no kxsi-evv-liptzur medications nor prescription medications. Patient denies cigarette smoking, denies drug use, states he only drinks beer. 03/27 Evaluated patient at bedside today he was eating breakfast had no complaints. Does still seem a bit altered from my point of view. Was asking me about discharge informed him definitely not today. Nephro following. Okay to transfer out of ICU. 03/28 Evaluated patient at bedside today no complaints. altered but cooperative Nephro following. . na 131 admit 113 Moderate cerebral atrophy. alb 2.1 c/w severe protein-caloric malnutrition 03/29/2021: No acute events overnight. Has not required Ativan for withdrawal symptoms. PAT team has been consulted for assessment and recommendations. PT recommending SNU with rolling walker. Patient as of now is undecided about SNU. Anticipate discharge tomorrow home with self-care or SNU. COVID-19 pending for placement. Vitals/I&O Vitals/I&O: Vital Signs Date Time Temp Pulse Resp B/P (MAP) Pulse Ox O2 Delivery O2 Flow Rate FiO2 03/29/21 08:00 97.9 117/65 (82) 97.9 03/29/21 04:00 Room Air 03/29/21 02:44 65 18 100 I & O 03/28/21 03/28/21 03/29/21 15:00 23:00 07:00 Intake Total 1020 ml 180 ml Output Total 700 ml 1100 ml 2175 ml Balance -700 ml -80 ml -1995 ml Physical Exam General: Alert, Cooperative, No acute distress Heart: Regular rate, Normal S1, Normal S2 Lungs: Clear Abdomen: Normal bowel sounds, Soft, No tenderness Extremities: No edema, Normal pulses Skin: No significant lesion Labs Labs: Laboratory Tests Test 03/29/21 06:05 Sodium Level 132 mmol/L (136-145) Potassium Level 3.8 mmol/L (3.5-5.1) Chloride Level 99 mmol/L (98-107) Carbon Dioxide Level 28 mmol/L (21-32) Anion Gap 5 (6-14) Blood Urea Nitrogen 6 mg/dL (8-26) Creatinine 0.6 mg/dL (0.7-1.3) Estimated GFR (Cockcroft-Gault) 137.0 Glucose Level 85 mg/dL (70-99) Calcium Level 8.4 mg/dL (8.5-10.1) Phosphorus Level 2.3 mg/dL (2.6-4.7) Magnesium Level 2.7 mg/dL (1.8-2.4) Albumin 2.1 g/dL (3.4-5.0) Assessment and Plan Assessmemt and Plan Problems Medical Problems: (1) MAHESH (acute kidney injury) Status: Acute (2) Alcohol withdrawal syndrome Status: Acute (3) Alcoholism Status: Acute (4) Hypothermia Status: Acute Comment Review of Relevant I have reviewed the following items natalie (where applicable) has been applied. Justifications for Admission Other Justification CONY HOBBS MD Mar 29, 2021 11:37
[2021-03-29 12:00] VITALS: BP 124/72
[2021-03-29 15:47] VITALS: BP 128/76
--- NOTE | 2021-03-29 15:52 | NUR ---
SW following. Discussed with RN, SW will continue to follow.pt from home alone, room air, regular diet. PAT cleared. Therapy recommending SNF. Pt's RN reported pt is quite forgetful and recommended SW to call pt's DPOA, Janis (ph: [phone]). SW spoke with Janis, she reported pt is quite forgetful even prior to this admission. Janis agrees to SNF placement, agreeable to [facility] due to its proximity to [place] where her grandparents live. Janis reported if pt went home he would have to go stay with his parents and his mom takes care of his dad who falls often and needs 24/7 care. Referral phoned and faxed to [facility], awaiting acceptance and insurance auth. COVID test pending for placement. RN notified. JOSE EDUARDO will continue to follow.
[2021-03-29 19:10] VITALS: BP 133/80
[2021-03-29 23:00] VITALS: BP 118/73
[2021-03-30 04:00] VITALS: BP 107/67
[2021-03-30] MEDS: HEPARIN for SUB-Q USE 5,000 UNIT/ML VIAL. SQ SCH ×3 (06:36→21:23)
[2021-03-30 08:00] VITALS: BP 123/77
[2021-03-30 08:34] LABS: ALBUMIN 2.1 g/dL (3.4-5.0); CALCIUM 8.1 mg/dL (8.5-10.1); CREATININE 0.7 mg/dL (0.7-1.3); GFR 114.6; PHOSPHORUS 3.1 mg/dL (2.6-4.7); POTASSIUM 3.9 mmol/L (3.5-5.1)
[2021-03-30] MEDS: SENNOSIDES/DOCUSATE 8.6/50MG TABLET. PO SCH ×2 (09:00→21:11)
[2021-03-30] MEDS: THIAMINE 100 MG TABLET. PO SCH (09:51)
[2021-03-30] MEDS: FOLIC ACID 1 MG TABLET. PO SCH (09:51)
[2021-03-30] MEDS: MULTIVITAMIN with MINERAL TABLET. PO SCH (09:51)
[2021-03-30 11:06] VITALS: BP 124/75
[2021-03-30 11:28] LABS: BILIRUBIN,URINE NEGATIVE (NEG); CLARITY,URINE CLEAR; COLOR,URINE YELLOW; NITRITE,URINE NEGATIVE (NEG); PROTEIN,URINE NEGATIVE (NEG-TRACE)
--- NOTE | 2021-03-30 11:45 | NUR ---
dirk held d/t patient having loose stools
--- NOTE | 2021-03-30 11:47 | NUR ---
SW following. Discussed with RN, referral faxed to [facility] [place] yesterday- they are now on an admissions hold due to COVID so won't have a bed until next week. RN received a call from pt's mother requesting referral to [facility]. JOSE EDUARDO phoned and faxed referral, awaiting acceptance decision and insurance auth. JOSE EDUARDO will continue to follow. Addendum: 03/30/21 at 1544 by BOSSMAN WHITT [facility] declined to accept pt for some random reason that was muttered in the voicemail. JOSE EDUARDO left a message for Antonia at [facility] requesting a call back. JOSE EDUARDO requested Ashly at [facility] take a look to determine if [facility] would be able to accept. Awaiting acceptance decision.
[2021-03-30 11:49] LABS: BACTERIA,URINE 0 /HPF (0-FEW); RBC,URINE 0 /HPF (0-2); WBC,URINE 0 /HPF (0-4)
--- NOTE | 2021-03-30 14:14 | PDOC ---
DATE OF SERVICE DATE: 03/30/21 TIME: 14:12 SUBJECTIVE ROS No acute events overnight No complaints OBJECTIVE Vital Signs Vital Signs Date Time Temp Pulse Resp B/P (MAP) Pulse Ox O2 Delivery O2 Flow Rate FiO2 03/30/21 11:06 97.5 63 18 124/75 (91) 100 Room Air 97.5 I & 0 Intake and Output 03/30/21 06:59 Intake Total 860 ml Output Total 3250 ml Balance -2390 ml Intake Oral 860 ml Output Urine Total 3250 ml # Bowel Movements 1 PHYSICAL EXAM Physical Exam General Appearance: Awake Alert Oriented x 1 -2 In no Distress HEEN: No EN Drainage Mucous Memb. drysih Neck: Supple CVS: S1 S2 no Murmur Resp: no Rales no Rhonchi no Acc. Muscle use GI: BAS +ve NO Bruit Non Tender Non Distended : no CVA tenderness; no Suprapubic Tenderness, [place]al[place] + SKIN: no Rashes NEURO: Good Strength and Tone, No gross focal deficit DIAGNOSIS/ASSESSMENT DIAGNOSIS/ASSESSMENT Assessment & Plan Hyponatremia: asymptomatic at presentation. Serum alcohol levels were un detectable. Etiology of hyponatremia appears to be poor p.o. intake and intravascular volume depletion, though Seum osm low; CxR normal and TSH normal . Patient was noted to be hypotensive also at times. Na improved , mildly low, Monitor Acute kidney injury:POA- Resolved ; 2/2 intravascular volume depletion Hypotension: Suspect due to intravascular volume depletion , resolved Hyperphosphatemia: Resolved , Now Low Phos- 2/2 Refeeding syndrome - defer to primary Hypokalemia- resolved HypoMg- Mg High, DCed IV Mg Alcohol abuse with suspected withdrawal per primary Will sign off COMMENT/RELEVANT DATA Meds Current Medications Medications (Trade) Dose Ordered Sig/Holger Start Time Stop Time Status Last Admin Dose Admin Acetaminophen (Tylenol) 650 mg PRN Q6HRS PRN 03/26/21 16:15 Albuterol Sulfate (Ventolin Neb Soln) 2.5 mg PRN QID PRN 03/27/21 01:45 Albuterol/ Ipratropium (Duoneb) 3 ml QID 03/26/21 17:00 03/27/21 01:39 DC Calcium Carbonate/ Glycine (Tums) 500 mg PRN Q3HRS PRN 03/26/21 16:15 Folic Acid (Folic Acid) 1 mg DAILY 03/27/21 09:00 03/30/21 09:51 1 MG Heparin Sodium (Porcine) (Heparin Sodium) 5,000 unit Q8HRS 03/26/21 22:00 03/30/21 06:36 5,000 UNIT Info (Icu Electrolyte Protocol) 1 ea CONT PRN PRN 03/28/21 10:45 Info (Non-Icu Electrolyte Protocol) 1 ea PRN DAILY PRN 03/26/21 16:15 03/28/21 10:37 DC Lorazepam (Ativan) 8 mg PRN Q1HR PRN 03/26/21 16:00 Magnesium Sulfate 50 ml @ 25 mls/hr PRN DAILY PRN 03/27/21 09:00 03/28/21 12:56 DC Multivitamins (Thera M Plus) 1 tab DAILY 03/27/21 09:00 03/30/21 09:51 1 TAB Multivitamins 10 ml/Thiamine HCl 100 mg/Folic Acid 1 mg/Sodium Chloride 1,011.2 ml @ 100 mls/ hr DAILY 03/27/21 09:00 03/26/21 22:37 DC Ondansetron HCl (Zofran) 4 mg PRN Q6HRS PRN 03/26/21 16:15 Oxycodone/ Acetaminophen (Percocet 5/325) 2 tab PRN Q4HRS PRN 03/26/21 16:15 Potassium Chloride (Klor-Con) 40 meq [id number] 03/27/21 09:30 03/27/21 12:01 DC 03/27/21 13:14 40 MEQ Senna/Docusate Sodium (Senna Plus) 1 tab BID 03/26/21 21:00 03/29/21 09:29 1 TAB Sodium Bicarbonate 150 meq/Sterile Water 1,150 ml @ 125 mls/hr Q9H12M 03/26/21 23:00 03/27/21 08:56 DC 03/27/21 07:48 125 MLS/HR Sodium Chloride 38.5 meq/Sterile Water 1,009.625 ml @ 75 mls/hr [id number] 03/28/21 05:00 03/28/21 12:59 DC 03/28/21 04:40 75 MLS/HR Thiamine Mononitrate (Vitamin B-1) 100 mg DAILY 03/27/21 09:00 03/30/21 09:51 100 MG Zolpidem Tartrate (Ambien) 5 mg PRN QHS PRN 03/26/21 16:15 Lab Laboratory Tests Test 03/30/21 07:05 03/30/21 11:10 Sodium Level 132 mmol/L (136-145) Potassium Level 3.9 mmol/L (3.5-5.1) Chloride Level 99 mmol/L (98-107) Carbon Dioxide Level 25 mmol/L (21-32) Anion Gap 8 (6-14) Blood Urea Nitrogen 4 mg/dL (8-26) Creatinine 0.7 mg/dL (0.7-1.3) Estimated GFR (Cockcroft-Gault) 114.6 Glucose Level 79 mg/dL (70-99) Calcium Level 8.1 mg/dL (8.5-10.1) Phosphorus Level 3.1 mg/dL (2.6-4.7) Magnesium Level 2.3 mg/dL (1.8-2.4) Albumin 2.1 g/dL (3.4-5.0) Urine Collection Type Unknown Urine Color Yellow Urine Clarity Clear Urine pH 7.0 (<5.0-8.0) Urine Specific [place] <=1.005 (1.000-1.030) Urine Protein Negative mg/dL (NEG-TRACE) Urine Glucose (UA) Negative mg/dL (NEG) Urine Ketones (Stick) Trace mg/dL (NEG) Urine Blood Small (NEG) Urine Nitrite Negative (NEG) Urine Bilirubin Negative (NEG) Urine Urobilinogen Dipstick 1.0 mg/dL (0.2 mg/dL) Urine Leukocyte Esterase Negative (NEG) Urine RBC 0 /HPF (0-2) Urine WBC 0 /HPF (0-4) Urine Bacteria 0 /HPF (0-FEW) Results All relevant outside records, renal labs, imaging studies, telemetry/EKG's were reviewed. Justicifation of Admission Dx: Justifications for Admission: Justification of Admission Dx: Yes Sepsis: Altered Mental Status AMADA BEGUM MD Mar 30, 2021 14:14
--- NOTE | 2021-03-30 14:43 | PDOC ---
[employer] PROGRESS NOTE Date of Service DOS: DATE: 03/30/21 TIME: 14:42 Chief Complaint Chief Complaint Acute alcohol withdrawal Hyponatremia Weakness Severe malnutrition History of Present Illness History of Present Illness Patient is a 61-year-old male presents to the emergency department via EMS chief complaint of "my family is making me come here ". Patient does complain of being a 10 or more beer per day drinker every day since he was 18 years old. Patient reports quitting drinking this past Sunday because he could no longer afford alcohol. Patient reports since quitting drinking last Sunday he has become weak, feeling cold, and having fainting spells. Patient denies hitting his head. Patient denies aches or pains. Patient reports he feels very thirsty. Patient denies increased urination. Patient denies chest pain, shortness of breath, chest congestion or nasal congestion. Patient states he has not seen a primary care physician since he was 18 years old. Patient reports having an appointment to see a primary care physician at [facility] this next Sunday. Patient's brother at bedside reports the patient has had recent confusion, has had recent falls when he would come to see him. Is worried that he may be failure to thrive. Patient's brother states he felt he could not wait until his doctor's appointment this coming Sunday and brought him to the emergency department today for evaluation. Patient denies allergies to medications, takes no enzd-jhy-yvqjogg medications nor prescription medications. Patient denies cigarette smoking, denies drug use, states he only drinks beer. 03/27 Evaluated patient at bedside today he was eating breakfast had no complaints. Does still seem a bit altered from my point of view. Was asking me about discharge informed him definitely not today. Nephro following. Okay to transfer out of ICU. 03/28 Evaluated patient at bedside today no complaints. altered but cooperative Nephro following. . na 131 admit 113 Moderate cerebral atrophy. alb 2.1 c/w severe protein-caloric malnutrition 03/29/2021: No acute events overnight. Has not required Ativan for withdrawal symptoms. PAT team has been consulted for assessment and recommendations. PT recommending SNU with rolling walker. Patient as of now is undecided about SNU. Anticipate discharge tomorrow home with self-care or SNU. COVID-19 pending for placement. 03/30/2021: No acute events overnight. Patient is agreeable to SNU. Discussed with health and social care teacher, referrals have been sent to [facility], pending acceptance and insurance authorization. Vitals/I&O Vitals/I&O: Vital Signs Date Time Temp Pulse Resp B/P (MAP) Pulse Ox O2 Delivery O2 Flow Rate FiO2 03/30/21 11:06 97.5 63 18 124/75 (91) 100 Room Air 97.5 I & O 03/29/21 03/29/21 03/30/21 15:00 23:00 07:00 Intake Total 240 ml 620 ml 0 ml Output Total 1450 ml 1800 ml Balance -1210 ml 620 ml -1800 ml Physical Exam General: Alert, Cooperative, No acute distress Heart: Regular rate, Normal S1, Normal S2 Lungs: Clear Abdomen: Normal bowel sounds, Soft, No tenderness Extremities: No edema, Normal pulses Skin: No significant lesion Labs Labs: Laboratory Tests Test 03/30/21 07:05 03/30/21 11:10 Sodium Level 132 mmol/L (136-145) Potassium Level 3.9 mmol/L (3.5-5.1) Chloride Level 99 mmol/L (98-107) Carbon Dioxide Level 25 mmol/L (21-32) Anion Gap 8 (6-14) Blood Urea Nitrogen 4 mg/dL (8-26) Creatinine 0.7 mg/dL (0.7-1.3) Estimated GFR (Cockcroft-Gault) 114.6 Glucose Level 79 mg/dL (70-99) Calcium Level 8.1 mg/dL (8.5-10.1) Phosphorus Level 3.1 mg/dL (2.6-4.7) Magnesium Level 2.3 mg/dL (1.8-2.4) Albumin 2.1 g/dL (3.4-5.0) Urine Collection Type Unknown Urine Color Yellow Urine Clarity Clear Urine pH 7.0 (<5.0-8.0) Urine Specific [place] <=1.005 (1.000-1.030) Urine Protein Negative mg/dL (NEG-TRACE) Urine Glucose (UA) Negative mg/dL (NEG) Urine Ketones (Stick) Trace mg/dL (NEG) Urine Blood Small (NEG) Urine Nitrite Negative (NEG) Urine Bilirubin Negative (NEG) Urine Urobilinogen Dipstick 1.0 mg/dL (0.2 mg/dL) Urine Leukocyte Esterase Negative (NEG) Urine RBC 0 /HPF (0-2) Urine WBC 0 /HPF (0-4) Urine Bacteria 0 /HPF (0-FEW) Assessment and Plan Assessmemt and Plan Problems Medical Problems: (1) MAHESH (acute kidney injury) Status: Acute (2) Alcohol withdrawal syndrome Status: Acute (3) Alcoholism Status: Acute (4) Hypothermia Status: Acute Comment Review of Relevant I have reviewed the following items natalie (where applicable) has been applied. Justifications for Admission Other Justification CONY HOBBS MD Mar 30, 2021 14:43
[2021-03-30 15:00] VITALS: BP 100/71
[2021-03-30 19:00] VITALS: BP 121/72
[2021-03-30 23:00] VITALS: BP 130/61
[2021-03-31 03:00] VITALS: BP 130/70
[2021-03-31] MEDS: HEPARIN for SUB-Q USE 5,000 UNIT/ML VIAL. SQ SCH (06:48)
[2021-03-31 06:51] LABS: ALBUMIN 2.3 g/dL (3.4-5.0); CALCIUM 8.5 mg/dL (8.5-10.1); CREATININE 0.8 mg/dL (0.7-1.3); GFR 98.3; PHOSPHORUS 3.2 mg/dL (2.6-4.7); POTASSIUM 4.1 mmol/L (3.5-5.1)
[2021-03-31 07:00] VITALS: BP 145/78
--- NOTE | 2021-03-31 08:39 | PDOC ---
[employer] PROGRESS NOTE Date of Service DOS: DATE: 03/31/21 TIME: 08:37 Chief Complaint Chief Complaint Acute alcohol withdrawal Hyponatremia Weakness Severe malnutrition History of Present Illness History of Present Illness Patient is a 61-year-old male presents to the emergency department via EMS chief complaint of "my family is making me come here ". Patient does complain of being a 10 or more beer per day drinker every day since he was 18 years old. Patient reports quitting drinking this past Sunday because he could no longer afford alcohol. Patient reports since quitting drinking last Sunday he has become weak, feeling cold, and having fainting spells. Patient denies hitting his head. Patient denies aches or pains. Patient reports he feels very thirsty. Patient denies increased urination. Patient denies chest pain, shortness of breath, chest congestion or nasal congestion. Patient states he has not seen a primary care physician since he was 18 years old. Patient reports having an appointment to see a primary care physician at [facility] this next Sunday. Patient's brother at bedside reports the patient has had recent confusion, has had recent falls when he would come to see him. Is worried that he may be failure to thrive. Patient's brother states he felt he could not wait until his doctor's appointment this coming Sunday and brought him to the emergency department today for evaluation. Patient denies allergies to medications, takes no [id number] medications nor prescription medications. Patient denies cigarette smoking, denies drug use, states he only drinks beer. 03/27 Evaluated patient at bedside today he was eating breakfast had no complaints. Does still seem a bit altered from my point of view. Was asking me about discharge informed him definitely not today. Nephro following. Okay to transfer out of ICU. 03/28 Evaluated patient at bedside today no complaints. altered but cooperative Nephro following. . na 131 admit 113 Moderate cerebral atrophy. alb 2.1 c/w severe protein-caloric malnutrition 03/29/2021: No acute events overnight. Has not required Ativan for withdrawal symptoms. PAT team has been consulted for assessment and recommendations. PT recommending SNU with rolling walker. Patient as of now is undecided about SNU. Anticipate discharge tomorrow home with self-care or SNU. COVID-19 pending for placement. 03/30/2021: No acute events overnight. Patient is agreeable to SNU. Discussed with neonatal social worker, referrals have been sent to [facility], pending acceptance and insurance authorization. 03/31/2021: No acute events overnight. He has been working with physical therapy and is able to ambulate to far to meet requirements for SNU. He was discharged home with home health and family care. Greater than 30 minutes spent managing discharge of this patient. Vitals/I&O Vitals/I&O: Vital Signs Date Time Temp Pulse Resp B/P (MAP) Pulse Ox O2 Delivery O2 Flow Rate FiO2 03/31/21 07:00 98.1 62 20 145/78 (100) 100 Room Air 98.1 I & O 03/30/21 03/30/21 03/31/21 15:00 23:00 07:00 Intake Total 0 ml 0 ml Output Total 850 ml 1900 ml Balance -850 ml -1900 ml Physical Exam General: Alert, Cooperative, No acute distress Heart: Regular rate, Normal S1, Normal S2 Lungs: Clear Abdomen: Normal bowel sounds, Soft, No tenderness Extremities: No edema, Normal pulses Skin: No significant lesion Labs Labs: Laboratory Tests Test 03/30/21 11:10 03/31/21 05:48 Urine Collection Type Unknown Urine Color Yellow Urine Clarity Clear Urine pH 7.0 (<5.0-8.0) Urine Specific [place] <=1.005 (1.000-1.030) Urine Protein Negative mg/dL (NEG-TRACE) Urine Glucose (UA) Negative mg/dL (NEG) Urine Ketones (Stick) Trace mg/dL (NEG) Urine Blood Small (NEG) Urine Nitrite Negative (NEG) Urine Bilirubin Negative (NEG) Urine Urobilinogen Dipstick 1.0 mg/dL (0.2 mg/dL) Urine Leukocyte Esterase Negative (NEG) Urine RBC 0 /HPF (0-2) Urine WBC 0 /HPF (0-4) Urine Bacteria 0 /HPF (0-FEW) Urine Random Sodium 34 mmol/L (Not Estab.) Sodium Level 133 mmol/L (136-145) Potassium Level 4.1 mmol/L (3.5-5.1) Chloride Level 101 mmol/L (98-107) Carbon Dioxide Level 25 mmol/L (21-32) Anion Gap 7 (6-14) Blood Urea Nitrogen 4 mg/dL (8-26) Creatinine 0.8 mg/dL (0.7-1.3) Estimated GFR (Cockcroft-Gault) 98.3 Glucose Level 86 mg/dL (70-99) Calcium Level 8.5 mg/dL (8.5-10.1) Phosphorus Level 3.2 mg/dL (2.6-4.7) Magnesium Level 2.1 mg/dL (1.8-2.4) Albumin 2.3 g/dL (3.4-5.0) Assessment and Plan Assessmemt and Plan Problems Medical Problems: (1) MAHESH (acute kidney injury) Status: Acute (2) Alcohol withdrawal syndrome Status: Acute (3) Alcoholism Status: Acute (4) Hypothermia Status: Acute Comment Review of Relevant I have reviewed the following items natalie (where applicable) has been applied. Justifications for Admission Other Justification CONY HOBBS MD Mar 31, 2021 08:39
[2021-03-31] MEDS: SENNOSIDES/DOCUSATE 8.6/50MG TABLET. PO SCH (09:00)
[2021-03-31] MEDS: FOLIC ACID 1 MG TABLET. PO SCH (09:05)
[2021-03-31] MEDS: MULTIVITAMIN with MINERAL TABLET. PO SCH (09:05)
[2021-03-31] MEDS: THIAMINE 100 MG TABLET. PO SCH (09:05)
[2021-03-31 10:31] VITALS: BP 101/55
--- NOTE | 2021-03-31 12:08 | PDOC3 ---
Discharge Summary Visit Information Date of Admission: Mar 26, 2021 Date of Discharge: Mar 31, 2021 Final Diagnosis Problems Medical Problems: (1) MAHESH (acute kidney injury) Status: Acute (2) Alcohol withdrawal syndrome Status: Acute (3) Alcoholism Status: Acute (4) Hypothermia Status: Acute Brief Hospital Course Allergies Allergies Coded Allergies Type Severity Reaction Last Updated Verified No Known Drug Allergies 03/26/21 No Vital Signs Vital Signs Date Time Temp Pulse Resp B/P (MAP) Pulse Ox O2 Delivery O2 Flow Rate FiO2 03/31/21 10:31 98.2 62 18 101/55 (70) 99 Room Air 98.2 Lab Results Laboratory Tests Test 03/29/21 13:15 03/30/21 07:05 03/30/21 11:10 03/31/21 05:48 SARS-CoV-2 RNA (DURAN) Negative (Negative) Sodium Level 132 mmol/L (136-145) 133 mmol/L (136-145) Potassium Level 3.9 mmol/L (3.5-5.1) 4.1 mmol/L (3.5-5.1) Chloride Level 99 mmol/L (98-107) 101 mmol/L (98-107) Carbon Dioxide Level 25 mmol/L (21-32) 25 mmol/L (21-32) Anion Gap 8 (6-14) 7 (6-14) Blood Urea Nitrogen 4 mg/dL (8-26) 4 mg/dL (8-26) Creatinine 0.7 mg/dL (0.7-1.3) 0.8 mg/dL (0.7-1.3) Estimated GFR (Cockcroft-Gault) 114.6 98.3 Glucose Level 79 mg/dL (70-99) 86 mg/dL (70-99) Calcium Level 8.1 mg/dL (8.5-10.1) 8.5 mg/dL (8.5-10.1) Phosphorus Level 3.1 mg/dL (2.6-4.7) 3.2 mg/dL (2.6-4.7) Magnesium Level 2.3 mg/dL (1.8-2.4) 2.1 mg/dL (1.8-2.4) Albumin 2.1 g/dL (3.4-5.0) 2.3 g/dL (3.4-5.0) Urine Collection Type Unknown Urine Color Yellow Urine Clarity Clear Urine pH 7.0 (<5.0-8.0) Urine Specific [place] <=1.005 (1.000-1.030) Urine Protein Negative mg/dL (NEG-TRACE) Urine Glucose (UA) Negative mg/dL (NEG) Urine Ketones (Stick) Trace mg/dL (NEG) Urine Blood Small (NEG) Urine Nitrite Negative (NEG) Urine Bilirubin Negative (NEG) Urine Urobilinogen Dipstick 1.0 mg/dL (0.2 mg/dL) Urine Leukocyte Esterase Negative (NEG) Urine RBC 0 /HPF (0-2) Urine WBC 0 /HPF (0-4) Urine Bacteria 0 /HPF (0-FEW) Urine Random Sodium 34 mmol/L (Not Estab.) Laboratory Tests Test 03/31/21 05:48 Sodium Level 133 mmol/L (136-145) Potassium Level 4.1 mmol/L (3.5-5.1) Chloride Level 101 mmol/L (98-107) Carbon Dioxide Level 25 mmol/L (21-32) Anion Gap 7 (6-14) Blood Urea Nitrogen 4 mg/dL (8-26) Creatinine 0.8 mg/dL (0.7-1.3) Estimated GFR (Cockcroft-Gault) 98.3 Glucose Level 86 mg/dL (70-99) Calcium Level 8.5 mg/dL (8.5-10.1) Phosphorus Level 3.2 mg/dL (2.6-4.7) Magnesium Level 2.1 mg/dL (1.8-2.4) Albumin 2.3 g/dL (3.4-5.0) Brief Hospital Course Mr. Avelar is a 61 old male who presented with acute alcohol withdrawal, Hyponatremia, Weakness, Severe malnutrition, MAHESH due to vasomotor nephropathy. History of Present Illness History of Present Illness Patient is a 61-year-old male presents to the emergency department via EMS chief complaint of "my family is making me come here ". Patient does complain of being a 10 or more beer per day drinker every day since he was 18 years old. Patient reports quitting drinking this past Sunday because he could no longer afford alcohol. Patient reports since quitting drinking last Sunday he has become weak, feeling cold, and having fainting spells. Patient denies hitting his head. Patient denies aches or pains. Patient reports he feels very thirsty. Patient denies increased urination. Patient denies chest pain, shortness of breath, chest congestion or nasal congestion. Patient states he has not seen a primary care physician since he was 18 years old. Patient reports having an appointment to see a primary care physician at [facility] this next Sunday. Patient's brother at bedside reports the patient has had recent confusion, has had recent falls when he would come to see him. Is worried that he may be failure to thrive. Patient's brother states he felt he could not wait until his doctor's appointment this coming Sunday and brought him to the emergency department today for evaluation. Patient denies allergies to medications, takes no [id number] medications nor prescription medications. Patient denies cigarette smoking, denies drug use, states he only drinks beer. 03/27 Evaluated patient at bedside today he was eating breakfast had no complaints. Does still seem a bit altered from my point of view. Was asking me about discharge informed him definitely not today. Nephro following. Okay to transfer out of ICU. 03/28 Evaluated patient at bedside today no complaints. altered but cooperative Nephro following. . na 131 admit 113 Moderate cerebral atrophy. alb 2.1 c/w severe protein-caloric malnutrition 03/29/2021: No acute events overnight. Has not required Ativan for withdrawal symptoms. PAT team has been consulted for assessment and recommendations. PT recommending SNU with rolling walker. Patient as of now is undecided about SNU. Anticipate discharge tomorrow home with self-care or SNU. COVID-19 pending for placement. 03/30/2021: No acute events overnight. Patient is agreeable to SNU. Discussed with licensed social worker, referrals have been sent to [facility], pending acceptance and insurance authorization. 03/31/2021: No acute events overnight. He has been working with physical therapy and is able to ambulate to far to meet requirements for SNU. He was discharged home with home health and family care. Greater than 30 minutes spent managing discharge of this patient. Discharge Information Condition at Discharge: Improved Disposition/Orders: D/C to Home w/ HH Justicifation of Admission Dx: Justifications for Admission: Justification of Admission Dx: Yes Sepsis: Altered Mental Status CONY HOBBS MD Mar 31, 2021 12:08
--- NOTE | 2021-03-31 12:14 | SNU/HH DC ---
DISCHARGE WITH HOME HEALTH DISCHARGE INFORMATION: Discharge Date: Mar 31, 2021 Final Diagnosis: Problems Medical Problems: (1) MAHESH (acute kidney injury) Status: Acute (2) Alcohol withdrawal syndrome Status: Acute (3) Alcoholism Status: Acute (4) Hypothermia Status: Acute Condition on Discharge: Stable CODE STATUS: Code Status: Full HOME HEALTH: Face to Face: I certify this patient is under my care and that I, or a nurse practitioner or physician's general office assistant working with me, had a face to face encounter that meets the physician face to face encounter requirements with this patient on 03/31/2021. Medical Complications: Falls, Other (Alcohol abuse) Penitentiary For: Assess & Educate Safety RN For Eval/Treatment: Yes Physical Therapy For: Evalulation/Treatment Occupational Therapy For: Evaluation/Treatment Pt Meets Homebound Status: Unsteady balance w/ amb,, Extreme weakness w/ amb., Frequent falls w/ injury POST DISCHARGE ORDERS: DIET AFTER DISCHARGE: Cardiac CERTIFICATION STATEMENT: Certification Statement: Certification Statement: Based on the above finding, I certify that this patient is confined to the home and needs intermittent alf care, physical therapy and/or speech therapy, or continues to need occupational therapy.~ This patient is under my care, and I have initiated the establishment of the plan of care.~ This patient will be followed by myself or a community physician who will periodically review the plan of care. CONY HOBBS MD Mar 31, 2021 12:13
--- NOTE | 2021-03-31 13:38 | NUR ---
SW following. Discussed with RN, pt from home alone, walked 100ft yesterday - [facility] declined due to walking distance. SW spoke with pt's daughter and explained the insurance piece and facility denials. Pt's daughter agreeable to home health and advised pt will be going to stay with his parents at [address] [place] [address]. Janis (daughter) has no preference of provider, agreeable to Oscar. Oscar Ware RN notified - may have to get patient set up with a PCP. Pt's siblings coming to get pt to take him home. RN notified. SW will continue to follow.
[2021-03-31 15:00] VITALS: BP 135/75
--- NOTE | 2021-03-31 15:06 | NUR ---
pt was discharged home with home health, edson Lam came to pickle cutter pt at the main entrance to take him home to their parents for care. Gian Moore RN
== END 2021-03-31 15:30 | disposition home health service (06) | DRG 640 ==
LOC: ER 13:04 → 1 WEST ICU 15:55 → 5 SOUTH 03-28 18:44
PROVIDERS: ADMIT Student in an Organized Health Care Education/Training Program; ATTEND Student in an Organized Health Care Education/Training Program
DX: E87.1 Hypo-osmolality and hyponatremia (principal); N17.0 Acute kidney failure with tubular necrosis; E43 Unspecified severe protein-calorie malnutrition; F10.239 Alcohol dependence with withdrawal, unspecified; Z68.1 Body mass index [BMI] 19.9 or less, adult; Z20.822 Contact with and (suspected) exposure to COVID-19; I95.9 Hypotension, unspecified; E83.39 Other disorders of phosphorus metabolism; E83.42 Hypomagnesemia; E87.6 Hypokalemia
CPT/HCPCS: 36415; 70450; 71045; 76700; 80051; 80053; 80069; 80076; 80307; 81001; 82553; 83605; 83690; 83735; 83880; 83930; 83935; 84100; 84295; 84300; 84439; 84443; 84484; 84550; 85018; 85025; 85610; 85730; 87040; 93005; 96365; G0480; J1644; J3411; J3490; J7030; U0003; U0005; 97110-GP; 97116-GP; 97535-GO; 99285-25; G0378